=== PATIENT | female | born 1970 | race Caucasian/White ===

== ENCOUNTER 2018-08-04 15:03 | Inpatient (IN) | payer OTHER ==
[2018-08-04] MEDS ORDERED: LORazepam 2 MG/ML SDV VIAL ONE (15:18)
--- NOTE | 2018-08-04 15:51 | PDOC ---
History of Present Illness - General Chief Complaint: Alcohol intoxication Stated Complaint: INTOXICATION Time Seen by Provider: 08/04/18 15:51 - History of Present Illness Initial Comments: 47yo F brought by family member who said she had ingested alcohol and was intoxicated. Patient admits to drinking over five drinks of alcohol. She reports a history of heavy drinking, consuming about two pints of vodka per day. Agitated in the ED. Medicated with Ativan 2mg and Haldol 5mg IM. Patient does not appear to have acute complaints. Denies recent fall, LOC, or neck tenderness. History was difficult to elicit because patient was uncooperative. Past History - Past Medical History Allergies/Adverse Reactions: Allergies Allergy/AdvReac Type Severity Reaction Status Date / Time Penicillins Allergy Intermediate Difficulty Verified 08/29/13 12:04 Breathing mushroom Allergy Severe Difficulty Uncoded 08/29/13 12:04 Breathing Home Medications: Ambulatory Orders Escitalopram Oxalate [Lexapro -] 20 mg PO DAILY #30 tablet 08/30/13 Albuterol Sulfate Inhaler - [Ventolin HFA Inhaler -] 2 inh PO Q4H PRN #1 inh 10/03 Montelukast Na [Singulair -] 10 mg PO HS #30 tablet 09/02/13 Salmeterol/Fluticasone [Advair 500Mcg/50Mcg -] 1 inh IH BID #1 inh 09/02/13 Albuterol 2.5/Ipratropium 0.5 [Duoneb -] 1 neb NEB Q4H PRN #1 vial 06/04/14 Albuterol Sulfate Inhaler - [Ventolin HFA Inhaler -] 1 - 2 inh PO Q4H PRN #1 inhaler 06/04/14 Buspirone HCl [Buspar -] 20 mg PO HS 06/04/14 Quetiapine Fumarate [Seroquel -] 0 mg PO HS 06/04/14 Anemia: No Asthma: Yes (Pt is on MDI for asthma.) Cancer: No Cardiac Disorders: No CVA: No COPD: No CHF: No Dementia: No Diabetes: No GI Disorders: Yes (GERD ON FOMATIDINE) Disorders: No HTN: No Hypercholesterolemia: No Kidney Stones: No Liver Disease: No Psychiatric Problems: Yes (ANXIETY) Seizures: No Thyroid Disease: No - Surgical History Abdominal Surgery: No Appendectomy: No Cardiac Surgery: No Cholecystectomy: No Lung Surgery: No Neurologic Surgery: No Orthopedic Surgery: No - Reproductive History PID: No - Suicide/Smoking/Psychosocial Hx Smoking History: Current every day smoker Have you smoked in the past 12 months: Yes Number of Cigarettes Smoked Daily: 20 Information on smoking cessation initiated: Yes 'Breaking Loose' booklet given: 06/04/14 Hx Alcohol Use: Yes Drug/Substance Use Hx: No Substance Use Type: Alcohol Hx Substance Use Treatment: No Review of Systems - Review of Systems Able to Perform ROS?: No *Physical Exam - Vital Signs Last Vital Signs Temp Pulse Resp BP Pulse Ox 98 F 77 20 129/88 100 08/04/18 15:03 08/04/18 15:03 08/04/18 15:03 08/04/18 15:03 08/04/18 15:03 - Physical Exam Comments: General:Somnolent, oriented x 1 (not to place or time), agitated, yelling intermittently Head: no signs of trauma Eyes: pupils dilated, equal, and reactive ENT: Moist mucus membranes Neck: Normal ROM, no neck tenderness Lungs: Lungs clear, Normal breath sounds Cardio: Regular rhythm, S1 and S2 present Abdomen: Soft, nontender Extremities: Normal range of motion, Distal pulses present SKIN: Warm, Dry, normal turgor; multiple bruises present on upper extremities Neurologic: Cranial nerves II through XII grossly intact. Slurred speech ED Treatment Course - LABORATORY CBC & Chemistry Diagram: 08/05/18 07:30 08/05/18 07:30 Medical Decision Making - Medical Decision Making 47yo F brought by family member who said she had ingested alcohol and was intoxicated. -Patient agitated; given Haldol 5mg IM and Ativan 2mg, calm now -IV fluids given; unsuccessful drawing blood for labs, will hold for now -Care assumed by Dr. Valerio *DC/Admit/Observation/Transfer Diagnosis at time of Disposition: Intoxication, Hypokalemia - Referrals - Patient Instructions - Post Discharge Activity
[2018-08-04] MEDS ORDERED: HALOPERIDOL LACTATE 5 MG/ML ONE (16:03)
[2018-08-04] MEDS ORDERED: HALOPERIDOL LACTATE 5 MG/ML IM ONE (16:06)
[2018-08-04] MEDS ORDERED: SODIUM CHLORIDE 1,000 ML IV STA (16:22)
--- NOTE | 2018-08-04 19:03 | PDOC ---
Attending Attestation - Resident Resident Name: Lavonne Nava - ED Attending Attestation I have performed the following: I have examined & evaluated the patient, The case was reviewed & discussed with the resident, I agree w/resident's findings & plan, Exceptions are as noted - HPI HPI: 08/09/18 08:53 Patient brought in by family member, acutely intoxicated, drinking vodka. Frequently abuses alcohol. Treated in the emergency room on prior occasions for similar. - Physicial Exam PE: 08/09/18 08:54 Physical exam: Acutely intoxicated but awake, somewhat combative, vital signs are stable No sign of trauma to the head or neck, chest or abdomen. No focal neurological deficits. Remainder of exam without significant abnormalities - Medical Decision Making 08/09/18 08:54 Assessment: Acute intoxication. Patient is combative and will not permit further laboratory evaluation Plan: Continued attempts intravenous access, blood work, and administration of fluids, vitamins and thiamine. Signed out to Dr. Valeiro 7 PM pending further evaluation and treatment. Patient clinically and hemodynamically stable without sign of acute intracranial disease.
[2018-08-04 20:11] LABS: INR 1.88 (0.82-1.09); PROTHROMBIN TIME (PATIENT) 20.8 SEC (10.2-13.0)
[2018-08-04 20:17] LABS: BASO % 0.7 % (0-2.0); HEMOGLOBIN 12.3 GM/dl (10.7-15.3); LYMPH % 29.5 % (8-40); MCH 35.9 pg (25.7-33.7); MCHC 33.3 g/dl (32.0-36.0); MEAN CELL VOLUME 107.6 fl (80-96); MEAN PLT VOLUME 9.7 fl (7.5-11.1); MONO % 7.7 % (3.8-10.2); NEUT % 61.1 % (42.8-82.8); RBC 3.43 M/mm3 (3.60-5.2); RDW 13.4 % (11.6-15.6); WHITE BLOOD COUNT 8.4 K/mm3 (4.0-10.8)
[2018-08-04 20:21] LABS: ALBUMIN 3.2 g/dl (3.5-5.0); ALK PHOS 156 U/L (32-92); ANION GAP 13 MMOL/L (8-16); BILIRUBIN,TOTAL 3.4 mg/dl (0.2-1.0); BLOOD UREA NITROGEN 3 mg/dl (7-18); CALCIUM 8.2 mg/dl (8.4-10.2); CHLORIDE 97 mmol/L (98-107); CO2 28 mmol/L (22-28); CREATININE 0.3 mg/dl (0.6-1.3); GLUCOSE,RANDOM 111 mg/dl (74-106); SGOT/AST 274 U/L (10-42); SGPT/ALT 63 U/L (10-40); SODIUM 138 mmol/L (136-145); TOT PROT 6.9 g/dl (6.4-8.3)
[2018-08-04 20:30] LABS: POTASSIUM 2.3 mmol/L (3.5-5.1)
[2018-08-04] MEDS ORDERED: POTASSIUM CHLORIDE TABS 20 MEQ TABLET.ER (FP) PO ONE (20:37)
[2018-08-04] MEDS ORDERED: POTASSIUM CHLORIDE ORAL LIQUID 20 MEQ/15 ML ONE (20:41)
--- NOTE | 2018-08-04 20:45 | PDOC ---
History of Present Illness - General Chief Complaint: Alcohol intoxication Stated Complaint: INTOXICATION Time Seen by Provider: 08/04/18 15:51 History Source: Patient Exam Limitations: No Limitations - History of Present Illness Initial Comments: 08/04/18 20:38 Care of this patient was transferred to me from Dr. Khan at 7 PM. Patient is a 47-year-old female known to this ED and heavy drinker with visits for intoxication. Patient comes in this evening heavily intoxicated patient was very combative when she arrived so received Haldol and Ativan. Patient on my evaluation was sleepy but arousable. They had not been able to obtain labs yet so I silvestre her blood via a small peripheral vein. 20:30 patient remains arousable and comfortable. The patient's labs show an alcohol level of 446 and a potassium of 2.3 Past History - Past Medical History Allergies/Adverse Reactions: Allergies Allergy/AdvReac Type Severity Reaction Status Date / Time Penicillins Allergy Intermediate Difficulty Verified 08/29/13 12:04 Breathing mushroom Allergy Severe Difficulty Uncoded 08/29/13 12:04 Breathing Home Medications: Ambulatory Orders Escitalopram Oxalate [Lexapro -] 20 mg PO DAILY #30 tablet 08/30/13 Albuterol Sulfate Inhaler - [Ventolin HFA Inhaler -] 2 inh PO Q4H PRN #1 inh 10/03 Montelukast Na [Singulair -] 10 mg PO HS #30 tablet 09/02/13 Salmeterol/Fluticasone [Advair 500Mcg/50Mcg -] 1 inh IH BID #1 inh 09/02/13 Albuterol 2.5/Ipratropium 0.5 [Duoneb -] 1 neb NEB Q4H PRN #1 vial 06/04/14 Albuterol Sulfate Inhaler - [Ventolin HFA Inhaler -] 1 - 2 inh PO Q4H PRN #1 inhaler 06/04/14 Buspirone HCl [Buspar -] 20 mg PO HS 06/04/14 Quetiapine Fumarate [Seroquel -] 0 mg PO HS 06/04/14 Anemia: No Asthma: Yes (Pt is on MDI for asthma.) Cancer: No Cardiac Disorders: No CVA: No COPD: No CHF: No Dementia: No Diabetes: No GI Disorders: Yes (GERD ON FOMATIDINE) Disorders: No HTN: No Hypercholesterolemia: No Kidney Stones: No Liver Disease: No Psychiatric Problems: Yes (ANXIETY) Seizures: No Thyroid Disease: No - Surgical History Abdominal Surgery: No Appendectomy: No Cardiac Surgery: No Cholecystectomy: No Lung Surgery: No Neurologic Surgery: No Orthopedic Surgery: No - Reproductive History PID: No - Suicide/Smoking/Psychosocial Hx Smoking History: Current every day smoker Have you smoked in the past 12 months: Yes Number of Cigarettes Smoked Daily: 20 Information on smoking cessation initiated: Yes 'Breaking Loose' booklet given: 06/04/14 Hx Alcohol Use: Yes Drug/Substance Use Hx: No Substance Use Type: Alcohol Hx Substance Use Treatment: No *Physical Exam - Vital Signs Last Vital Signs Temp Pulse Resp BP Pulse Ox 98 F 101 H 18 107/62 92 L 08/04/18 15:03 08/04/18 18:46 08/04/18 18:46 08/04/18 18:46 08/04/18 18:46 ED Treatment Course - LABORATORY CBC & Chemistry Diagram: 08/04/18 19:40 08/04/18 19:40 - ADDITIONAL ORDERS Additional order review: Laboratory Results 08/04/18 08/04/18 08/04/18 19:40 19:40 19:30 PT with INR 20.8 H INR 1.88 H Sodium 138 Potassium 2.3 L* D Chloride 97 L D Carbon Dioxide 28 Anion Gap 13 BUN 3 L Creatinine 0.3 L Creat Clearance w eGFR > 60 Random Glucose 111 H Calcium 8.2 L Total Bilirubin 3.4 H AST 274 H D ALT 63 H D Alkaline Phosphatase 156 H Total Protein 6.9 Albumin 3.2 L Alcohol, Quantitative 446.0 H 08/04/18 19:40 RBC 3.43 L MCV 107.6 H MCHC 33.3 RDW 13.4 MPV 9.7 Neutrophils % 61.1 Lymphocytes % 29.5 Monocytes % 7.7 Eosinophils % 1.0 Basophils % 0.7 - RADIOLOGY Radiology Studies Ordered: Category Date Time Status HEAD CT WITHOUT CONTRAST [CT] Stat CT Scan 08/04/18 19:33 Ordered CHEST X-RAY PORTABLE* [RAD] Stat Radiology 08/04/18 19:33 Ordered - Medications Given in the ED: ED Medications Discontinued Medications Generic Name Dose Route Start Last Admin Trade Name Freq PRN Reason Stop Dose Admin Haloperidol 5 mg 08/04/18 16:06 08/04/18 16:10 Haldol Injection (Fast Acting) - IM 08/04/18 16:07 5 mg ONCE ONE Administration Sodium Chloride 1,000 mls @ 1,000 mls/hr 08/04/18 16:22 08/04/18 17:36 Normal Saline - IV 08/04/18 17:21 1,000 mls/hr ASDIR STA Administration Lorazepam 2 mg 08/04/18 16:08 08/04/18 15:20 Ativan Injection - IM 08/04/18 16:09 2 mg ONCE ONE Administration *DC/Admit/Observation/Transfer Diagnosis at time of Disposition: Intoxication, Hypokalemia - Discharge Dispostion Decision to Admit order: Yes - Referrals - Patient Instructions - Post Discharge Activity
[2018-08-04] MEDS ORDERED: FOLIC ACID INJECTION - 1 MG, THIAMINE HCL 100 MG, MULTIVIT INJECTION ADULT 10 ML in SOD... IVPB ONE (20:56)
[2018-08-04] MEDS ORDERED: MULTIVIT INJ. ADULT COMBO WITH VIT K 1 COMBO 10 ML VIAL IV ONE (21:00)
[2018-08-04] MEDS ORDERED: FOLIC ACID 5 MG/1 ML ONE (21:02)
[2018-08-04 21:29] LABS: PLATELET COUNT 42 K/MM3 (134-434)
[2018-08-04 21:30] LABS: LIPASE 514 U/L (73-393)
[2018-08-04] MEDS ORDERED: HEPARIN NA (PORCINE) 5,000 UNITS/ML 1ML VIAL SQ SCH (22:00)
[2018-08-04] MEDS ORDERED: LACTULOSE 20 GM/30 ML UDC (FOR ORAL USE ONLY) PO PRN (23:14)
[2018-08-04] MEDS ORDERED: SODIUM CHLORIDE 1,000 ML IV SCH (23:15)
[2018-08-05 01:05] VITALS: BMI 21.9
[2018-08-05] MEDS ORDERED: POTASSIUM CHLORIDE TABS 20 MEQ TABLET.ER (FP) PO ONE (04:00)
[2018-08-05] MEDS: guaiFENesin/D-METHORPHAN HB 10 ML UNIT-DOSE CUPS PO PRN (04:05)
[2018-08-05] MEDS ORDERED: traMADol HCL 50 MG TABLET PO ONE ×2 (04:38→10:30)
[2018-08-05] MEDS ORDERED: LORazepam 0.5 MG TABLET ONE (04:53)
[2018-08-05 05:05] LABS: COCAINE, UR NEGATIVE ng/ml (CUTOFF=300); METHADONE, UR NEGATIVE ng/ml (CUTOFF=300); OPIATES, URI NEGATIVE ng/ml (CUTOFF=300); PHENCYCLIDINE,URINE NEGATIVE ng/ml (CUTOFF=25); URINE AMPHETAMINES NEGATIVE ng/ml (CUTOFF=500); URINE BARBITURATES NEGATIVE ng/ml (CUTOFF=200); URINE BENZODIAZEPINES NEGATIVE ng/ml (CUTOFF=200)
[2018-08-05] MEDS ORDERED: LORazepam 1 MG TABLET PO SCH (06:00)
--- NOTE | 2018-08-05 07:46 | HP ---
CHIEF COMPLAINT: " I am going through alcohol withdrawl" PCP: Dr Tanner Theodore HISTORY OF PRESENT ILLNESS: Patient is a 47 y/o female with a past medical History of asthma, anxiety, depression And alcohol abuse. Patient reports drinking 2 pints a day of vodka for the past 10 years. Patient reports she self -discontinued her lexapro, "because it wasn't working." Patient is a poor historian and reports she was brought to emergency department by her family member because she was intoxicated. . ER course was notable for: (1)head ct: no acute pathology (2)ekg:nsr (3)Potassium 2.3 Recent Travel:none PAST MEDICAL HISTORY: see hpi PAST SURGICAL HISTORY:none as per patient Social History: resides at home, with family, patient has a 15 y/o son that resides with another family member Smoking:smokes "many cigarrettes daily" Alcohol:see hpi Drugs: none as per patient Family History: non Contributory Allergies Penicillins Allergy (Intermediate, Verified 08/29/13 12:04) Difficulty Breathing mushroom Allergy (Severe, Uncoded 08/29/13 12:04) Difficulty Breathing HOME MEDICATIONS: Home Medications Medication Instructions Recorded Escitalopram Oxalate [Lexapro -] 20 mg PO DAILY #30 tablet 08/30/13 Albuterol Sulfate Inhaler - 2 inh PO Q4H PRN #1 inh 09/02/13 [Ventolin HFA Inhaler -] Montelukast Na [Singulair -] 10 mg PO HS #30 tablet 09/02/13 Salmeterol/Fluticasone [Advair 1 inh IH BID #1 inh 09/02/13 500Mcg/50Mcg -] Albuterol 2.5/Ipratropium 0.5 1 neb NEB Q4H PRN #1 vial 06/04/14 [Duoneb -] Albuterol Sulfate Inhaler - 1 - 2 inh PO Q4H PRN #1 inhaler 06/04/14 [Ventolin HFA Inhaler -] Buspirone HCl [Buspar -] 20 mg PO HS 06/04/14 Quetiapine Fumarate [Seroquel -] 0 mg PO HS 06/04/14 REVIEW OF SYSTEMS CONSTITUTIONAL: Absent: fever, chills, diaphoresis, generalized weakness, malaise, loss of appetite, weight change HEENT: Absent: rhinorrhea, nasal congestion, throat pain, throat swelling, difficulty swallowing, mouth swelling, ear pain, eye pain, visual changes CARDIOVASCULAR: Absent: chest pain, syncope, palpitations, irregular heart rate, lightheadedness , peripheral edema RESPIRATORY: Absent: cough, shortness of breath, dyspnea with exertion, orthopnea, wheezing, stridor, hemoptysis GASTROINTESTINAL: Absent: abdominal pain, abdominal distension, nausea, vomiting, diarrhea, constipation, melena, hematochezia GENITOURINARY: Absent: dysuria, frequency, urgency, hesitancy, hematuria, flank pain, genital pain MUSCULOSKELETAL: Absent: myalgia, arthralgia, joint swelling, back pain, neck pain SKIN: Absent: rash, itching, pallor HEMATOLOGIC/IMMUNOLOGIC: Absent: easy bleeding, easy bruising, lymphadenopathy, frequent infections ENDOCRINE: Absent: unexplained weight gain, unexplained weight loss, heat intolerance, cold intolerance NEUROLOGIC: present: photosensitivity Absent: headache, focal weakness or paresthesias, dizziness, unsteady gait, seizure, mental status changes, bladder or bowel incontinence PSYCHIATRIC: Present: anxiety, depression, Absent:suicidal or homicidal ideation, hallucinations. PHYSICAL EXAMINATION Vital Signs - 24 hr 08/04/18 08/04/18 08/04/18 15:03 18:46 21:05 Temperature 98 F Pulse Rate 77 Pulse Rate [ 101 H 97 H Left] Respiratory 20 18 18 Rate Blood Pressure 129/88 Blood Pressure 107/62 108/69 [Right Arm] O2 Sat by Pulse 100 92 L 100 Oximetry (%) 08/04/18 08/04/18 08/05/18 23:02 23:45 00:01 Temperature 98.6 F 97.8 F 97.8 F Pulse Rate 91 H 91 H Pulse Rate [ 94 H Left] Respiratory 16 18 Rate Blood Pressure 90/57 L 90/57 L Blood Pressure 101/64 [Right Arm] O2 Sat by Pulse 99 97 97 Oximetry (%) 08/05/18 05:43 Temperature 98.1 F Pulse Rate 91 H Pulse Rate [ Left] Respiratory 18 Rate Blood Pressure 89/59 L Blood Pressure [Right Arm] O2 Sat by Pulse 97 Oximetry (%) GENERAL:Patient is agitated Awake, alert, and fully oriented HEAD: Normal with no signs of trauma. EYES: Pupils equal, round and reactive to light, extraocular movements intact, sclera anicteric, conjunctiva clear. No lid lag. EARS, NOSE, THROAT: Ears normal, nares patent, oropharynx clear without exudates. Moist mucous membranes. NECK: Normal range of motion, supple without lymphadenopathy, JVD, or masses. LUNGS: Breath sounds equal, clear to auscultation bilaterally. No wheezes, and no crackles. No accessory muscle use. HEART: Regular rate and rhythm, normal S1 and S2 without murmur, rub or gallop. ABDOMEN: Soft, nontender, not distended, normoactive bowel sounds, no guarding, no rebound, no masses. No hepatomegaly or splenomegaly. MUSCULOSKELETAL: Normal range of motion at all joints. No bony deformities or tenderness. No CVA tenderness. UPPER EXTREMITIES: 2+ pulses, warm, well-perfused. No cyanosis. No clubbing. No peripheral edema.Bilateral upper extremity tremors LOWER EXTREMITIES: 2+ pulses, warm, well-perfused. No calf tenderness. No peripheral edema. NEUROLOGICAL: Cranial nerves II-XII intact. Normal speech. Normal gait. PSYCHIATRIC: Cooperative. Good eye contact. agitated SKIN: Warm, dry, normal turgor, no rashes or lesions noted, normal capillary refill. Laboratory Results - last 24 hr 08/04/18 08/04/18 08/04/18 19:30 19:30 19:40 WBC 8.4 RBC 3.43 L Hgb 12.3 Hct 37.0 MCV 107.6 H MCH 35.9 H D MCHC 33.3 RDW 13.4 Plt Count 42 L* MPV 9.7 Absolute Neuts (auto) 5.1 Neutrophils % 61.1 Lymphocytes % 29.5 Monocytes % 7.7 Eosinophils % 1.0 Basophils % 0.7 PT with INR INR Sodium Potassium Chloride Carbon Dioxide Anion Gap BUN Creatinine Creat Clearance w eGFR Random Glucose Calcium Total Bilirubin AST ALT Alkaline Phosphatase Ammonia 95.91 H Total Protein Albumin Lipase Serum , Qual Opiates Screen Methadone Screen Barbiturate Screen Phencyclidine Screen Ur Amphetamines Screen MDMA (Ecstasy) Screen Benzodiazepines Screen Cocaine Screen U Marijuana (THC) Screen Alcohol, Quantitative 446.0 H 08/04/18 08/04/18 08/04/18 19:40 19:40 19:40 WBC RBC Hgb Hct MCV MCH MCHC RDW Plt Count MPV Absolute Neuts (auto) Neutrophils % Lymphocytes % Monocytes % Eosinophils % Basophils % PT with INR 20.8 H INR 1.88 H Sodium 138 Potassium 2.3 L* D Chloride 97 L D Carbon Dioxide 28 Anion Gap 13 BUN 3 L Creatinine 0.3 L Creat Clearance w eGFR > 60 Random Glucose 111 H Calcium 8.2 L Total Bilirubin 3.4 H AST 274 H D ALT 63 H D Alkaline Phosphatase 156 H Ammonia Total Protein 6.9 Albumin 3.2 L Lipase 514 H Serum , Qual Negative Opiates Screen Methadone Screen Barbiturate Screen Phencyclidine Screen Ur Amphetamines Screen MDMA (Ecstasy) Screen Benzodiazepines Screen Cocaine Screen U Marijuana (THC) Screen Alcohol, Quantitative 08/05/18 04:25 WBC RBC Hgb Hct MCV MCH MCHC RDW Plt Count MPV Absolute Neuts (auto) Neutrophils % Lymphocytes % Monocytes % Eosinophils % Basophils % PT with INR INR Sodium Potassium Chloride Carbon Dioxide Anion Gap BUN Creatinine Creat Clearance w eGFR Random Glucose Calcium Total Bilirubin AST ALT Alkaline Phosphatase Ammonia Total Protein Albumin Lipase Serum , Qual Opiates Screen Negative Methadone Screen Negative Barbiturate Screen Negative Phencyclidine Screen Negative Ur Amphetamines Screen Negative MDMA (Ecstasy) Screen Negative Benzodiazepines Screen Negative Cocaine Screen Negative U Marijuana (THC) Screen Negative Alcohol, Quantitative ASSESSMENT/PLAN: 1) PSYCH alcohol abuse - pt endorses she drinks 2 pints of vodka daily for the past 10 years, ciwa-ar 18, will start librium protocol - fall risk precautions - appreciate input of substance abuse physician depression anxiety - restart lexapro - appreciate psychiatry input tobacco use - start nicoderm patch 2) GI alcohol induced hepatitis - trend ast/alt, pending GGTP and hepatitis panel - elevated amnonia level continue lactulose - avoid hepatoxic agents - appreciate GI input 3) pulm asthma - no acute exacerbation at this time continue when necessary albuterol f/e/n - regular diet - replete magnesium and potassium ppx - hold chemical ac due to Thrombocytopenia - Pepcid - SCD/Eric - physical therapy evaluation dispo: pt requires inpatient admission Visit type - Emergency Visit Emergency Visit: Yes ED Registration Date: 08/04/18 Care time: The patient presented to the Emergency Department on the above date and was hospitalized for further evaluation of their emergent condition. - New Patient This patient is new to me today: Yes Date on this admission: 08/05/18 - Critical Care Critical Care patient: No
[2018-08-05] MEDS ORDERED: LORazepam 0.5 MG TABLET PO SCH (07:48)
[2018-08-05 08:21] LABS: BASO % 0.8 % (0-2.0); EOS % 2.1 % (0-4.5); HEMATOCRIT 33.7 % (32.4-45.2); HEMOGLOBIN 11.4 GM/dl (10.7-15.3); LYMPH % 26.7 % (8-40); MCH 36.3 pg (25.7-33.7); MCHC 33.7 g/dl (32.0-36.0); MEAN CELL VOLUME 107.7 fl (80-96); MEAN PLT VOLUME 9.2 fl (7.5-11.1); MONO % 7.4 % (3.8-10.2); PLATELET COUNT 39 K/MM3 (134-434); RBC 3.13 M/mm3 (3.60-5.2); RDW 13.4 % (11.6-15.6)
[2018-08-05 08:45] LABS: ANION GAP 8 MMOL/L (8-16); CALCIUM 7.3 mg/dl (8.4-10.2); CHLORIDE 105 mmol/L (98-107); CO2 27 mmol/L (22-28); CREATININE 0.3 mg/dl (0.6-1.3); GLUCOSE,RANDOM 88 mg/dl (74-106); MAGNESIUM 1.3 mg/dL (1.8-2.4); POTASSIUM 3.2 mmol/L (3.5-5.1); SODIUM 140 mmol/L (136-145)
[2018-08-05 08:55] LABS: ALBUMIN 2.9 g/dl (3.5-5.0); BILIRUBIN,DIRECT 1.7 mg/dL (0.0-0.3); BILIRUBIN,TOTAL 3.3 mg/dl (0.2-1.0); TOT PROT 6.3 g/dl (6.4-8.3)
[2018-08-05 08:56] LABS: BLOOD UREA NITROGEN < 5 mg/dl (7-18)
[2018-08-05] MEDS ORDERED: MAGNESIUM SULFATE 2 GM in SODIUM CHLORIDE 100 ML IVPB ONE (08:59)
[2018-08-05 09:07] LABS: WHITE BLOOD COUNT 8.1 K/mm3 (4.0-10.8)
[2018-08-05] MEDS ORDERED: MAGNESIUM SULFATE IN WATER 2 GM/50 ML IVPB IVPB ONE (09:30)
[2018-08-05] MEDS ORDERED: PT OWN MED DRAWER 7, Y5N ONE ×2 (09:55→18:25)
[2018-08-05] MEDS ORDERED: chlordiazePOXIDE HCL 25 MG CAPSULE PO ONE (10:07)
[2018-08-05] MEDS ORDERED: chlordiazePOXIDE HCL 25 MG CAPSULE ONE (10:19)
[2018-08-05] MEDS: THIAMINE HCL 100 MG TABLET (FP) PO SCH (10:24)
[2018-08-05] MEDS: FOLIC ACID 1 MG TABLET (FP) PO SCH (10:24)
[2018-08-05] MEDS: POTASSIUM CHLORIDE TABS 20 MEQ TABLET.ER (FP) PO SCH (10:25)
[2018-08-05] MEDS: SODIUM CHLORIDE 0.9%/KCL 20 MEQ/1,000 ML INFUS.BAG IV SCH (10:25)
[2018-08-05] MEDS: ESCITALOPRAM OXALATE 20 MG TABLET (FP) PO SCH (10:38)
--- NOTE | 2018-08-05 10:41 | EKG ---
Test Reason : Blood Pressure : / mmHG Vent. Rate : 095 BPM Atrial Rate : 095 BPM P-R Int : 136 ms QRS Dur : 084 ms QT Int : 398 ms P-R-T Axes : 029 028 016 degrees QTc Int : 500 ms NORMAL SINUS RHYTHM NORMAL ECG WHEN COMPARED WITH ECG OF 23-JUL-1998 11:49, VENT. RATE HAS INCREASED BY 37 BPM Confirmed by GURJIT MONTEMAYOR MD ([id number]) on 08/05/2018 10:41:39 AM Referred By: TERI DURBIN Confirmed By:GURJIT MONTEMAYOR MD
--- NOTE | 2018-08-05 11:24 | CONSULT ---
"Consult Detox [facility] Reason for Current Admission/Consult: alcohol use - History History of Present Illness: 47yo F brought after ingestion of large quantities of alcohol and was intoxicated. Patient admits to drinking over five drinks of alcohol--two pints of vodka per day. Pt was agitated in the ED. pt states would like to stop drinking- has been drinking too much Confidential Drug Utilization Report Search Terms: georgina ruffin, 1970 Search Date: 08/05/2018 11:23:52 AM The Drug Utilization Report below displays all of the controlled substance prescriptions, if any, that your patient has filled in the last twelve months. The information displayed on this report is compiled from pharmacy submissions to the Department, and accurately reflects the information as submitted by the pharmacies. This report was requested by: Zan Diaz | Reference #: [id number] Others' Prescriptions Patient Name: Georgina Sims Date: 1970 Address: [address] [place] [address] Sex: Female Rx Written Rx Dispensed Drug Quantity Days Supply Prescriber Name 05/21/2018 06/05/2018 hydrocodone-acetaminophen 5-325 mg tablet 12 2 John Alejandra DDJena 10/13/2017 10/13/2017 oxycodone-acetaminophen 5-325 mg tablet 10 3 Fran Aguilera - Alcohol/Substance Use Hx Alcohol Use: Yes - Past Medical History ...LMP: 11/02/10 ...: No CIWA Score - CIWA Score Nausea/Vomitin-Mild Nausea/No Vomiting Muscle Tremors: 4-Moderate,w/Arms Extend Anxiety: 1-Mildly Anxious Agitation: 1-Slight > Activity Paroxysmal Sweats: No Perspiration Orientation: 0-Oriented Tacttile Disturbances: 0-None Auditory Disturbances: 0-None Visual Disturbances: 0-None Headache: 0-None Present CIWA-Ar Total Score: 7 Assessment Plan - Diagnosis (1) Alcohol use disorder Status: Acute (2) Alcohol use with intoxication Status: Chronic - Plan Plan: Pt admitted with acute alcohol intoxication. Pt is currently getting librium detox protocol- pt now with tremors-will increase the librium prn to 50mg q 4 hours and one dose of Ativan 1mg IV push- d/w nursing staff to call if pt needs additional dosing. Pt would like to go to alcohol rehab at [facility] [place] in [place] after detox is completed. - Medication Detox Regimen/Protocol: Lea"
[2018-08-05] MEDS: MULTIVITAMINS (DAILY MVI) TABLET (FP) PO SCH (11:33)
[2018-08-05] MEDS: NICOTINE 14 MG/24 HOURS TOPICAL PATCH TD SCH (11:33)
[2018-08-05] MEDS: chlordiazePOXIDE HCL 25 MG CAPSULE PO SCH ×2 (11:33→16:10)
[2018-08-05 12:31] LABS: PLATELET ESTIMATE DECREASED
[2018-08-05] MEDS: chlordiazePOXIDE HCL 25 MG CAPSULE PO PRN ×3 (13:36→21:06)
[2018-08-05] MEDS: LACTULOSE 20 GM/30 ML UDC (FOR ORAL USE ONLY) PO SCH ×2 (14:07→19:55)
[2018-08-05] MEDS ORDERED: LORazepam 2 MG/ML SDV VIAL ONE ×2 (18:44→21:19)
[2018-08-05] MEDS ORDERED: LORazepam 2 MG/ML SDV VIAL IVPUSH ONE (18:44)
[2018-08-05] MEDS: LORazepam 2 MG/ML SDV VIAL IVPUSH ONE (21:33)
[2018-08-06] MEDS: LORazepam 2 MG/ML SDV VIAL IVPUSH PRN ×2 (01:31→21:58)
[2018-08-06] MEDS: LORazepam 2 MG/ML SDV VIAL IVPUSH SCH ×4 (01:54→15:43)
[2018-08-06] MEDS: LACTULOSE 20 GM/30 ML UDC (FOR ORAL USE ONLY) PO SCH ×3 (03:11→19:26)
--- NOTE | 2018-08-06 07:52 | PN ---
Physical Exam: SUBJECTIVE: Patient seen and examined, resting in bed, reports feeling less Tremulous, reports decreased Appetite patient is tolerating small sips of water OBJECTIVE:Patient is a 47 y/o female with a past medical History of asthma, anxiety, depression And alcohol abuse. Patient reports drinking 2 pints a day of vodka for the past 10 years. patient was admitted from the emergency department for alcohol Withdrawal Vital Signs Period Temp Pulse Resp BP Sys/Bautista Pulse Ox Last 24 Hr 98.0 F-99.6 F 84-98 16-19 100-117/55-63 92-95 GENERAL:Patient is Awake, alert, and fully oriented HEAD: Normal with no signs of trauma. EYES: Pupils equal, round and reactive to light, extraocular movements intact, sclera anicteric, conjunctiva clear. No lid lag. EARS, NOSE, THROAT: Ears normal, nares patent, oropharynx clear without exudates. Moist mucous membranes. NECK: Normal range of motion, supple without lymphadenopathy, JVD, or masses. LUNGS: Breath sounds equal, clear to auscultation bilaterally. No wheezes, and no crackles. No accessory muscle use. HEART: Regular rate and rhythm, normal S1 and S2 without murmur, rub or gallop. ABDOMEN: Soft, nontender, not distended, normoactive bowel sounds, no guarding, no rebound, no masses. No hepatomegaly or splenomegaly. MUSCULOSKELETAL: Normal range of motion at all joints. No bony deformities or tenderness. No CVA tenderness. UPPER EXTREMITIES: 2+ pulses, warm, well-perfused. No cyanosis. No clubbing. No peripheral edema. Fine Bilateral upper extremity tremors LOWER EXTREMITIES: 2+ pulses, warm, well-perfused. No calf tenderness. No peripheral edema. NEUROLOGICAL: Cranial nerves II-XII intact. Normal speech. Normal gait. PSYCHIATRIC: Cooperative. Good eye contact. SKIN: Warm, dry, normal turgor, echymosis noted to bilateral upper extremities. no rashes or lesions noted, normal capillary refill. Laboratory Results - last 24 hr CBC WBC 7.4 K/mm3 (4.0-10.8) 08/06/18 06:30 RBC 3.01 M/mm3 (3.60-5.2) L 08/06/18 06:30 Hgb 11.2 GM/dl (10.7-15.3) 08/06/18 06:30 Hct 32.5 % (32.4-45.2) 08/06/18 06:30 MCV 108.1 fl (80-96) H 08/06/18 06:30 MCH 37.1 pg (25.7-33.7) H 08/06/18 06:30 MCHC 34.3 g/dl (32.0-36.0) 08/06/18 06:30 RDW 13.6 % (11.6-15.6) 08/06/18 06:30 Plt Count 35 K/MM3 (134-434) L* 08/06/18 06:30 MPV 9.8 fl (7.5-11.1) 08/06/18 06:30 Absolute Neuts (auto) 4.4 K/mm3 08/06/18 06:30 Neutrophils % 61.0 % (42.8-82.8) 08/06/18 06:30 Lymphocytes % 28.1 % (8-40) 08/06/18 06:30 Monocytes % 7.3 % (3.8-10.2) 08/06/18 06:30 Eosinophils % 2.8 % (0-4.5) 08/06/18 06:30 Basophils % 0.8 % (0-2.0) 08/06/18 06:30 Platelet Estimate Decreased 08/05/18 07:30 Platelet Comment No clumping noted 08/05/18 07:30 CMP Sodium 134 mmol/L (136-145) L 08/06/18 06:30 Potassium 3.5 mmol/L (3.5-5.1) 08/06/18 06:30 Chloride 104 mmol/L (98-107) 08/06/18 06:30 Carbon Dioxide 24 mmol/L (22-28) 08/06/18 06:30 Anion Gap 6 MMOL/L (8-16) L 08/06/18 06:30 BUN 3 mg/dl (7-18) L 08/06/18 06:30 Creatinine 0.2 mg/dl (0.6-1.3) L 08/06/18 06:30 Creat Clearance w eGFR > 60 (>60) 08/06/18 06:30 Random Glucose 89 mg/dl (74-106) 08/06/18 06:30 Calcium 7.6 mg/dl (8.4-10.2) L 08/06/18 06:30 Phosphorus 1.4 mg/dl (2.5-4.6) L D 08/06/18 06:30 Magnesium 1.4 mg/dL (1.8-2.4) L 08/06/18 06:30 Total Bilirubin 6.4 mg/dl (0.2-1.0) H D 08/06/18 06:30 Direct Bilirubin 1.7 mg/dL (0.0-0.3) H 08/05/18 08:21 GGT 1020 U/L (3-64) H 08/06/18 06:30 AST 223 U/L (10-42) H D 08/06/18 06:30 ALT 50 U/L (10-40) H 08/06/18 06:30 Alkaline Phosphatase 135 U/L (32-92) H 08/06/18 06:30 Ammonia 128.70 umol/L (11-32) H 08/06/18 06:30 Total Protein 5.9 g/dl (6.4-8.3) L 08/06/18 06:30 Albumin 2.7 g/dl (3.5-5.0) L 08/06/18 06:30 Lipase 514 U/L (73-393) H 08/04/18 19:40 Serum , Qual Negative 08/04/18 19:40 Active Medications Generic Name Dose Route Start Last Admin Trade Name Freq PRN Reason Stop Dose Admin Albuterol Sulfate 2 puff 08/05/18 04:38 Ventolin Hfa Inhaler - IH Q4H PRN SHORT OF BREATH/WHEEZING Chlordiazepoxide HCl 50 mg 08/05/18 18:43 08/05/18 21:06 Librium - PO 08/08/18 10:06 50 mg Q4H PRN Administration WITHDRAWAL(CONT SUBST) Escitalopram Oxalate 20 mg 08/05/18 10:15 08/05/18 10:38 Lexapro - PO 20 mg DAILY MAXINE Administration Folic Acid 1 mg 08/05/18 10:00 08/05/18 10:24 Folic Acid - PO 1 mg DAILY MAXINE Administration Guaifenesin 10 ml 08/05/18 03:56 08/05/18 04:05 Robitussin Dm - PO 10 ml Q6H PRN Administration COUGH Potassium Chloride/Sodium Chloride 20 meq in 1,000 mls @ 100 mls/hr 08/05/18 09:45 08/05/18 10:25 Ns+20 Meq Kcl - IV 100 mls/hr ASDIR MAXINE Administration Lactulose 20 gm 08/05/18 12:00 08/06/18 03:11 Cephulac (Oral Use) PO 20 gm Q8H MAXINE Administration Lorazepam 1 mg 08/05/18 21:21 08/06/18 01:31 Ativan Injection - IVPUSH 1 mg Q6H PRN Administration WITHDRAWAL(CONT SUBST) Lorazepam 2 mg 08/05/18 21:30 08/06/18 03:44 Ativan Injection - IVPUSH 08/06/18 15:31 2 mg Q6H MAXINE Administration Multivitamins/Minerals/Vitamin C 1 tab 08/05/18 10:45 08/05/18 11:33 Tab-A-Vit - PO 1 tab DAILY MAXINE Administration Nicotine 14 mg 08/05/18 10:30 08/05/18 11:33 Nicoderm Patch - TD 14 mg DAILY MAXINE Administration Ondansetron HCl 4 mg 08/06/18 07:51 Zofran Injection IVPUSH Q8H PRN NAUSEA Potassium Chloride 40 meq 08/05/18 10:00 08/05/18 10:25 K-Dur - PO 40 meq DAILY MAXINE Administration Thiamine HCl 100 mg 08/05/18 10:00 08/05/18 10:24 Vitamin B1 - PO 100 mg DAILY MAXINE Administration IMAGING head ct: no acute pathology chest xray: no infilitrate no effusion noted ASSESSMENT/PLAN: 1) PSYCH alcohol abuse - pt endorses she drinks 2 pints of vodka daily for the past 10 years, continue standing doses of ativan, patient was not tolerating librium secondary to vomiting. - lengthy discussion with patient in regards to alcholol detox, patient is requesting alcohol detox - Dr Diaz, substance abuse physician consulted and following risk precautions depression anxiety - patient denies any suicidal or homicidal ideation will continue lexapro - appreciate psychiatry input tobacco use - continue nicoderm patch 2) GI alcohol induced hepatitis - ast/alt trending downward, pending hepatitis panel - elevated amnonia level continue lactulose - avoid hepatoxic agents - appreciate GI input 3) pulm asthma - no acute exacerbation at this time continue when necessary albuterol f/e/n - regular diet - replete magnesium, potassium phos gtt ordered ppx - hold chemical ac due to Thrombocytopenia - Pepcid - SCD/Eric - physical therapy evaluation dispo: pt requires inpatient admission Visit type - Emergency Visit Emergency Visit: Yes ED Registration Date: 08/04/18 Care time: The patient presented to the Emergency Department on the above date and was hospitalized for further evaluation of their emergent condition. - New Patient This patient is new to me today: No - Critical Care Critical Care patient: No - Discharge Referral Referred to [facility] Med P.C.: No
[2018-08-06 07:53] LABS: BASO % 0.8 % (0-2.0); EOS % 2.8 % (0-4.5); HEMATOCRIT 32.5 % (32.4-45.2); HEMOGLOBIN 11.2 GM/dl (10.7-15.3); LYMPH % 28.1 % (8-40); MCH 37.1 pg (25.7-33.7); MCHC 34.3 g/dl (32.0-36.0); MEAN CELL VOLUME 108.1 fl (80-96); MEAN PLT VOLUME 9.8 fl (7.5-11.1); MONO % 7.3 % (3.8-10.2); RBC 3.01 M/mm3 (3.60-5.2); RDW 13.6 % (11.6-15.6); WHITE BLOOD COUNT 7.4 K/mm3 (4.0-10.8)
[2018-08-06 08:09] LABS: ALBUMIN 2.7 g/dl (3.5-5.0); ALK PHOS 135 U/L (32-92); ANION GAP 6 MMOL/L (8-16); BILIRUBIN,TOTAL 6.4 mg/dl (0.2-1.0); BLOOD UREA NITROGEN 3 mg/dl (7-18); CALCIUM 7.6 mg/dl (8.4-10.2); CHLORIDE 104 mmol/L (98-107); CO2 24 mmol/L (22-28); CREATININE 0.2 mg/dl (0.6-1.3); GLUCOSE,RANDOM 89 mg/dl (74-106); MAGNESIUM 1.4 mg/dL (1.8-2.4); PHOSPHOROUS 1.4 mg/dl (2.5-4.6); PLATELET COUNT 35 K/MM3 (134-434); POTASSIUM 3.5 mmol/L (3.5-5.1); SGOT/AST 223 U/L (10-42); SGPT/ALT 50 U/L (10-40); SODIUM 134 mmol/L (136-145); TOT PROT 5.9 g/dl (6.4-8.3)
[2018-08-06] MEDS: ONDANSETRON 4 MG/2 ML VIAL IVPUSH PRN ×2 (08:20→20:05)
[2018-08-06] MEDS: SODIUM CHLORIDE 0.9%/KCL 20 MEQ/1,000 ML INFUS.BAG IV SCH (10:00)
[2018-08-06] MEDS: POTASSIUM CHLORIDE TABS 20 MEQ TABLET.ER (FP) PO SCH (10:56)
[2018-08-06] MEDS: FOLIC ACID 1 MG TABLET (FP) PO SCH (10:56)
[2018-08-06] MEDS: NICOTINE 14 MG/24 HOURS TOPICAL PATCH TD SCH (10:57)
[2018-08-06] MEDS: MULTIVITAMINS (DAILY MVI) TABLET (FP) PO SCH (10:57)
[2018-08-06] MEDS: THIAMINE HCL 100 MG TABLET (FP) PO SCH (10:57)
[2018-08-06] MEDS: ESCITALOPRAM OXALATE 20 MG TABLET (FP) PO SCH (10:57)
[2018-08-06] MEDS: chlordiazePOXIDE HCL 25 MG CAPSULE PO PRN ×3 (10:57→20:05)
[2018-08-06] MEDS ORDERED: chlordiazePOXIDE HCL 25 MG CAPSULE PO SCH (11:00)
[2018-08-06] MEDS ORDERED: MAGNESIUM SULFATE IN WATER 2 GM/50 ML IVPB IVPB ONE (11:30)
[2018-08-06] MEDS ORDERED: POTASSIUM PHOSPHATE 21 MM in SODIUM CHLORIDE 250 ML IVPB ONE (12:30)
[2018-08-06] MEDS ORDERED: ONDANSETRON 4 MG/2 ML VIAL IVPUSH PRN (20:03)
[2018-08-06] MEDS: chlordiazePOXIDE HCL 25 MG CAPSULE PO SCH (23:00)
[2018-08-07 00:08] LABS: HBSAG SCREEN Negative (Negative); HEP A AB, IGM Negative (Negative); HEP B CORE AB, TOT Negative (Negative)
[2018-08-07] MEDS: guaiFENesin/D-METHORPHAN HB 10 ML UNIT-DOSE CUPS PO PRN (01:51)
[2018-08-07] MEDS: LORazepam 2 MG/ML SDV VIAL IVPUSH PRN ×3 (03:15→14:30)
[2018-08-07] MEDS: LACTULOSE 20 GM/30 ML UDC (FOR ORAL USE ONLY) PO SCH ×3 (03:26→21:39)
[2018-08-07] MEDS: chlordiazePOXIDE HCL 25 MG CAPSULE PO SCH ×4 (04:09→23:00)
[2018-08-07] MEDS ORDERED: LORazepam 0.5 MG TABLET PO SCH (06:00)
--- NOTE | 2018-08-07 07:43 | PN ---
Physical Exam: SUBJECTIVE: Patient seen and examined, patient reports feeling anxious, wants to walk outside to smoke OBJECTIVE::Patient is a 47 y/o female with a past medical History of asthma, anxiety, depression And alcohol abuse. Patient reports drinking 2 pints a day of vodka for the past 10 years. patient was admitted from the emergency department for alcohol Withdrawal Vital Signs Period Temp Pulse Resp BP Sys/Bautista Pulse Ox Last 24 Hr 98.0 F-99.1 F 74-98 18-18 108-121/59-70 96-100 GENERAL:Patient is Awake, alert, and fully oriented HEAD: Normal with no signs of trauma. EYES: Pupils equal, round and reactive to light, extraocular movements intact, sclera anicteric, conjunctiva clear. No lid lag. EARS, NOSE, THROAT: Ears normal, nares patent, oropharynx clear without exudates. Moist mucous membranes. NECK: Normal range of motion, supple without lymphadenopathy, JVD, or masses. LUNGS: Breath sounds equal, clear to auscultation bilaterally. No wheezes, and no crackles. No accessory muscle use. HEART: Regular rate and rhythm, normal S1 and S2 without murmur, rub or gallop. ABDOMEN: Soft, nontender, not distended, normoactive bowel sounds, no guarding, no rebound, no masses. No hepatomegaly or splenomegaly. MUSCULOSKELETAL: Normal range of motion at all joints. No bony deformities or tenderness. No CVA tenderness. UPPER EXTREMITIES: 2+ pulses, warm, well-perfused. No cyanosis. No clubbing. No peripheral edema. Fine Bilateral upper extremity tremors LOWER EXTREMITIES: 2+ pulses, warm, well-perfused. No calf tenderness. No peripheral edema. NEUROLOGICAL: Cranial nerves II-XII intact. Normal speech. Normal gait. PSYCHIATRIC: Cooperative. Good eye contact. SKIN: Warm, dry, normal turgor, echymosis noted to bilateral upper extremities. no rashes or lesions noted, normal capillary refill. Laboratory Results - last 24 hr 08/05/18 08/06/18 08/06/18 08:21 06:30 06:30 WBC 7.4 RBC 3.01 L Hgb 11.2 Hct 32.5 MCV 108.1 H MCH 37.1 H MCHC 34.3 RDW 13.6 Plt Count 35 L* MPV 9.8 Absolute Neuts (auto) 4.4 Neutrophils % 61.0 Lymphocytes % 28.1 Monocytes % 7.3 Eosinophils % 2.8 Basophils % 0.8 Sodium 134 L Potassium 3.5 Chloride 104 Carbon Dioxide 24 Anion Gap 6 L BUN 3 L Creatinine 0.2 L Creat Clearance w eGFR > 60 Random Glucose 89 Calcium 7.6 L Phosphorus 1.4 L D Magnesium 1.4 L Total Bilirubin 6.4 H D GGT AST 223 H D ALT 50 H Alkaline Phosphatase 135 H Ammonia Total Protein 5.9 L Albumin 2.7 L Hep A IgM Ab Confirm Negative Hepatitis A Ab Total Positive H Hep Bs Antigen Negative Hep Bs Antibody Non reactive Hep B Core Total Ab Negative Hep C Ab Diagnostic <0.1 Liver Fibrosis Interp 08/06/18 08/06/18 06:30 06:30 WBC RBC Hgb Hct MCV MCH MCHC RDW Plt Count MPV Absolute Neuts (auto) Neutrophils % Lymphocytes % Monocytes % Eosinophils % Basophils % Sodium Potassium Chloride Carbon Dioxide Anion Gap BUN Creatinine Creat Clearance w eGFR Random Glucose Calcium Phosphorus Magnesium Total Bilirubin GGT 1020 H AST ALT Alkaline Phosphatase Ammonia 128.70 H Total Protein Albumin Hep A IgM Ab Confirm Hepatitis A Ab Total Hep Bs Antigen Hep Bs Antibody Hep B Core Total Ab Hep C Ab Diagnostic Liver Fibrosis Interp Active Medications Generic Name Dose Route Start Last Admin Trade Name Freq PRN Reason Stop Dose Admin Albuterol Sulfate 2 puff 08/05/18 04:38 Ventolin Hfa Inhaler - IH Q4H PRN SHORT OF BREATH/WHEEZING Chlordiazepoxide HCl 50 mg 08/05/18 18:43 08/06/18 20:05 Librium - PO 08/08/18 10:06 50 mg Q4H PRN Administration WITHDRAWAL(CONT SUBST) Chlordiazepoxide HCl 50 mg 08/06/18 23:00 08/07/18 04:09 Librium - PO 08/07/18 17:01 50 mg [id number] MAXINE Administration Chlordiazepoxide HCl 25 mg 08/07/18 23:00 Librium - PO 08/08/18 17:01 [id number] MAXINE Chlordiazepoxide HCl 15 mg 08/08/18 23:00 Librium - PO 08/09/18 17:01 [id number] MAXINE Chlordiazepoxide HCl 10 mg 08/09/18 23:00 Librium - PO 08/10/18 17:01 [id number] MAXINE Escitalopram Oxalate 20 mg 08/05/18 10:15 08/06/18 10:57 Lexapro - PO 20 mg DAILY MAXINE Administration Folic Acid 1 mg 08/05/18 10:00 08/06/18 10:56 Folic Acid - PO 1 mg DAILY MAXINE Administration Guaifenesin 10 ml 08/05/18 03:56 08/07/18 01:51 Robitussin Dm - PO 10 ml Q6H PRN Administration COUGH Potassium Chloride/Sodium Chloride 20 meq in 1,000 mls @ 100 mls/hr 08/05/18 09:45 08/06/18 10:00 Ns+20 Meq Kcl - IV 100 mls/hr ASDIR MAXINE Administration Lactulose 20 gm 08/05/18 12:00 08/07/18 03:26 Cephulac (Oral Use) PO 20 gm Q8H MAXINE Administration Lorazepam 1 mg 08/05/18 21:21 08/07/18 03:15 Ativan Injection - IVPUSH 1 mg Q6H PRN Administration WITHDRAWAL(CONT SUBST) Multivitamins/Minerals/Vitamin C 1 tab 08/05/18 10:45 08/06/18 10:57 Tab-A-Vit - PO 1 tab DAILY MAXINE Administration Nicotine 14 mg 08/05/18 10:30 08/06/18 10:57 Nicoderm Patch - TD 14 mg DAILY MAXINE Administration Ondansetron HCl 4 mg 08/06/18 07:51 08/06/18 20:05 Zofran Injection IVPUSH 4 mg Q8H PRN Administration NAUSEA Ondansetron HCl 4 mg 08/06/18 20:03 Zofran Injection IVPUSH Q4H PRN NAUSEA AND/OR VOMITING Potassium Chloride 40 meq 08/05/18 10:00 08/06/18 10:56 K-Dur - PO 40 meq DAILY MAXINE Administration Thiamine HCl 100 mg 08/05/18 10:00 08/06/18 10:57 Vitamin B1 - PO 100 mg DAILY MAXINE Administration IMAGING head ct: no acute pathology chest xray: no infilitrate no effusion noted ASSESSMENT/PLAN: 1) PSYCH alcohol abuse - pt endorses she drinks 2 pints of vodka daily for the past 10 years, continue prn ativan, continue librium protocol - lengthy discussion with patient in regards to alcohol detox, patient is requesting alcohol detox - Dr Diaz, substance abuse physician consulted and following - fall risk precautions depression anxiety - patient denies any suicidal or homicidal ideation will continue lexapro - appreciate psychiatry input tobacco use - continue nicoderm patch 2) GI alcohol induced hepatitis - ast/alt trending downward, pending hepatitis panel - elevated amnonia level continue lactulose - avoid hepatoxic agents - appreciate GI input 3) pulm asthma - no acute exacerbation at this time continue when necessary albuterol f/e/n - regular diet - replete magnesium, potassium phos gtt ordered ppx - hold chemical ac due to Thrombocytopenia - Pepcid - SCD/Eric - physical therapy evaluation dispo: pt requires inpatient admission Visit type - Emergency Visit Emergency Visit: Yes ED Registration Date: 08/04/18 Care time: The patient presented to the Emergency Department on the above date and was hospitalized for further evaluation of their emergent condition. - New Patient This patient is new to me today: No - Critical Care Critical Care patient: No - Discharge Referral Referred to [facility] Med P.C.: No
[2018-08-07] MEDS: SODIUM CHLORIDE 0.9%/KCL 20 MEQ/1,000 ML INFUS.BAG IV SCH (09:30)
[2018-08-07] MEDS: POTASSIUM CHLORIDE TABS 20 MEQ TABLET.ER (FP) PO SCH (09:39)
[2018-08-07] MEDS: MULTIVITAMINS (DAILY MVI) TABLET (FP) PO SCH (09:39)
[2018-08-07] MEDS: ESCITALOPRAM OXALATE 20 MG TABLET (FP) PO SCH (09:40)
[2018-08-07] MEDS: THIAMINE HCL 100 MG TABLET (FP) PO SCH (09:40)
[2018-08-07] MEDS: FOLIC ACID 1 MG TABLET (FP) PO SCH (09:40)
[2018-08-07] MEDS: NICOTINE 14 MG/24 HOURS TOPICAL PATCH TD SCH (09:41)
[2018-08-07] MEDS ORDERED: chlordiazePOXIDE 5 MG CAPSULE PO SCH (11:00)
[2018-08-07 13:45] LABS: MCH 36.6 pg (25.7-33.7)
[2018-08-07 13:49] LABS: RDW 13.8 % (11.6-15.6)
[2018-08-07 13:57] LABS: HEMATOCRIT 36.3 % (32.4-45.2); HEMOGLOBIN 12.2 GM/dl (10.7-15.3); MCHC 33.7 g/dl (32.0-36.0); MEAN CELL VOLUME 108.7 fl (80-96); MEAN PLT VOLUME 9.6 fl (7.5-11.1); RBC 3.34 M/mm3 (3.60-5.2)
[2018-08-07 13:58] LABS: ADD RBC MORPHOLOGY YES
[2018-08-07 14:01] LABS: PLATELET COUNT 44 K/MM3 (134-434)
[2018-08-07 14:08] LABS: ALK PHOS 139 U/L (32-92); ANION GAP 4 MMOL/L (8-16); BILIRUBIN,TOTAL 10.6 mg/dl (0.2-1.0); BLOOD UREA NITROGEN 5 mg/dl (7-18); CALCIUM 8.3 mg/dl (8.4-10.2); CHLORIDE 106 mmol/L (98-107); CO2 20 mmol/L (22-28); CREATININE 0.3 mg/dl (0.6-1.3); GLUCOSE,RANDOM 99 mg/dl (74-106); MAGNESIUM 1.6 mg/dL (1.8-2.4); SGOT/AST 181 U/L (10-42); SGPT/ALT 46 U/L (10-40); SODIUM 130 mmol/L (136-145); TOT PROT 6.5 g/dl (6.4-8.3)
[2018-08-07 14:39] LABS: POTASSIUM 4.6 mmol/L (3.5-5.1)
[2018-08-07] MEDS ORDERED: MAGNESIUM SULFATE 2 GM in SODIUM CHLORIDE 100 ML IVPB ONE (14:46)
[2018-08-07] MEDS ORDERED: MAGNESIUM SULFATE IN WATER 2 GM/50 ML IVPB IVPB ONE (15:00)
--- NOTE | 2018-08-07 15:23 | CON.PSY ---
Psychiatry Consult Chief Complaint: 47 year old with a life long history of Alcohal Aduse see for psych evaluation. Patient has been drinking excwssivel;y and also has some medical problems. Symptoms: reports: Irritability - Previous Psychiatric Treatment Outpatient: None Inpatient: None - Previous Substance Abuse Treatment Outpatient: None Inpatient: None - Reason for Previous Treatment Reason for Previous Treatment: Alcohol Abuse - Current Medications Current Medications: Active Medications Albuterol Sulfate (Ventolin Hfa Inhaler -) 2 puff IH Q4H PRN PRN Reason: SHORT OF BREATH/WHEEZING Chlordiazepoxide HCl (Librium -) 50 mg PO Q4H PRN PRN Reason: WITHDRAWAL(CONT SUBST) Stop: 08/08/18 10:06 Last Admin: 08/06/18 20:05 Dose: 50 mg Chlordiazepoxide HCl (Librium -) 50 mg PO [id number] [facility] Stop: 08/07/18 17:01 Last Admin: 08/07/18 11:00 Dose: 50 mg Chlordiazepoxide HCl (Librium -) 25 mg PO [id number] MAXINE Stop: 08/08/18 17:01 Chlordiazepoxide HCl (Librium -) 15 mg PO [id number] MAXINE Stop: 08/09/18 17:01 Chlordiazepoxide HCl (Librium -) 10 mg PO [id number] MAXINE Stop: 08/10/18 17:01 Escitalopram Oxalate (Lexapro -) 20 mg PO DAILY [facility] Last Admin: 08/07/18 09:40 Dose: 20 mg Folic Acid (Folic Acid -) 1 mg PO DAILY [facility] Last Admin: 08/07/18 09:40 Dose: 1 mg Guaifenesin (Robitussin Dm -) 10 ml PO Q6H PRN PRN Reason: COUGH Last Admin: 08/07/18 01:51 Dose: 10 ml Potassium Chloride/Sodium Chloride (Ns+20 Meq Kcl -) 20 meq in 1,000 mls @ 100 mls/hr IV ASDIR MAXINE Last Admin: 08/07/18 09:30 Dose: 100 mls/hr Sodium Phosphate 21 mm/ Sodium (Chloride) 257 mls @ 62.5 mls/hr IVPB ONCE ONE Stop: 08/07/18 20:06 Magnesium Sulfate (Magnesium Sulf 2 G/50 Ml Bag) 2 gm in 50 mls @ 50 mls/hr IVPB ONCE ONE Stop: 08/07/18 15:59 Lactulose (Cephulac (Oral Use)) 20 gm PO Q8H [facility] Last Admin: 08/07/18 12:22 Dose: 20 gm Lorazepam (Ativan Injection -) 1 mg IVPUSH Q6H PRN PRN Reason: WITHDRAWAL(CONT SUBST) Last Admin: 08/07/18 09:35 Dose: 1 mg Multivitamins/Minerals/Vitamin C (Tab-A-Vit -) 1 tab PO DAILY [facility] Last Admin: 08/07/18 09:39 Dose: 1 tab Nicotine (Nicoderm Patch -) 14 mg TD DAILY [facility] Last Admin: 08/07/18 09:41 Dose: 14 mg Ondansetron HCl (Zofran Injection) 4 mg IVPUSH Q8H PRN PRN Reason: NAUSEA Last Admin: 08/06/18 20:05 Dose: 4 mg Ondansetron HCl (Zofran Injection) 4 mg IVPUSH Q4H PRN PRN Reason: NAUSEA AND/OR VOMITING Potassium Chloride (K-Dur -) 40 meq PO DAILY [facility] Last Admin: 08/07/18 09:39 Dose: 40 meq Potassium Phos/Sodium Phos (Phos-Nak Packet -) 1 packet PO TID [facility] Thiamine HCl (Vitamin B1 -) 100 mg PO DAILY [facility] Last Admin: 08/07/18 09:40 Dose: 100 mg - Allergies Allergies: Allergies Allergy/AdvReac Type Severity Reaction Status Date / Time Penicillins Allergy Intermediate Difficulty Verified 08/29/13 12:04 Breathing mushroom Allergy Severe Difficulty Uncoded 08/29/13 12:04 Breathing - Current Living Status Usual Living Arrangement: With Parent - Current Mental Status Evaluation Appearance: Disheveled Attitude: Uncooperative - Affect Affect: Expansive, Constrictive Appropriateness: Appropriate to Content - Mood Mood: Irritable - Speech/Language Expressive: Coherent - Psychomotor Activity Psychomotor Activity: Slowed - Thought Process Thought Process: Intact - Thought Content Hallucinations: Absent Delusions: Absent - Self Perception Self Perception: No Impairment - Cognition Attention: Alert Orientation: Time Memory, Immediate Recall: Intact Memory, Short Term: 2/3 Memory, Remote with Promptin/3 - Concentration Serial Sevens Intact: No Simple Calculations Intact: Yes - Abstraction Proverb Interpretation: Impaired Judgement: Moderately Impaired - Insight Insight: Impaired - Impulse Control Impulse Control: Minimally Impaired - Suicidal Ideation Suicidal Ideation: No - Homicidal Ideation Homicidal Ideation: No Assessment/Plan 1) No acute Mental illness thghat needs to be addressed at this time, 2) Continue with Librium Dtox. 3) discharge when medically clear.
[2018-08-07 15:42] LABS: PLATELET ESTIMATE DECREASED
[2018-08-07] MEDS ORDERED: SODIUM PHOSPHATE - 21 MM in SODIUM CHLORIDE 250 ML IVPB ONE (16:00)
[2018-08-07] MEDS: NAPH,MB-DB/K PH,MBDB POWDER PACKET PO SCH ×2 (16:12→21:40)
[2018-08-07 22:06] LABS: MAGNESIUM 1.8 mg/dL (1.8-2.4); PHOSPHOROUS 1.6 mg/dl (2.5-4.6)
[2018-08-07 22:37] LABS: ALBUMIN 2.8 g/dl (3.5-5.0); ALK PHOS 133 U/L (32-92); ANION GAP 7 MMOL/L (8-16); BILIRUBIN,TOTAL 10.2 mg/dl (0.2-1.0); BLOOD UREA NITROGEN 5 mg/dl (7-18); CALCIUM 8.3 mg/dl (8.4-10.2); CHLORIDE 107 mmol/L (98-107); CO2 22 mmol/L (22-28); GLUCOSE,RANDOM 94 mg/dl (74-106); POTASSIUM 4.2 mmol/L (3.5-5.1); SGOT/AST 158 U/L (10-42); SGPT/ALT 42 U/L (10-40); SODIUM 136 mmol/L (136-145); TOT PROT 6.2 g/dl (6.4-8.3)
[2018-08-07 22:38] LABS: CREATININE < 0.6 mg/dl (0.6-1.3)
[2018-08-08] MEDS: LACTULOSE 20 GM/30 ML UDC (FOR ORAL USE ONLY) PO SCH ×3 (05:25→21:40)
[2018-08-08] MEDS: chlordiazePOXIDE HCL 25 MG CAPSULE PO SCH ×3 (06:43→17:32)
[2018-08-08] MEDS: NAPH,MB-DB/K PH,MBDB POWDER PACKET PO SCH ×3 (06:43→21:40)
[2018-08-08] MEDS: ONDANSETRON 4 MG/2 ML VIAL IVPUSH PRN (06:47)
--- NOTE | 2018-08-08 08:56 | PN ---
Physical Exam: SUBJECTIVE: Patient seen and examined wants to be left alone, voices no complaints OBJECTIVE::Patient is a 47 y/o female with a past medical History of asthma, anxiety, depression And alcohol abuse. Patient reports drinking 2 pints a day of vodka for the past 10 years. patient was admitted from the emergency department for alcohol Withdrawal Vital Signs Period Temp Pulse Resp BP Sys/Bautista Pulse Ox Last 24 Hr 98.3 F-99.2 F 86-92 16-18 91-100/54-60 99-99 GENERAL:Patient is Awake, alert and fully oriented HEAD: Normal with no signs of trauma. EYES: Pupils equal, round and reactive to light, extraocular movements intact, sclera icteric, conjunctiva clear. No lid lag. EARS, NOSE, THROAT: Ears normal, nares patent, oropharynx clear without exudates. Moist mucous membranes. NECK: Normal range of motion, supple without lymphadenopathy, JVD, or masses. LUNGS: Breath sounds equal, clear to auscultation bilaterally. No wheezes, and no crackles. No accessory muscle use. HEART: Regular rate and rhythm, normal S1 and S2 without murmur, rub or gallop. ABDOMEN: Soft, nontender, not distended, normoactive bowel sounds, no guarding, no rebound, no masses. No hepatomegaly or splenomegaly. MUSCULOSKELETAL: Normal range of motion at all joints. No bony deformities or tenderness. No CVA tenderness. UPPER EXTREMITIES: 2+ pulses, warm, well-perfused. No cyanosis. No clubbing. No peripheral edema. Fine Bilateral upper extremity tremors LOWER EXTREMITIES: 2+ pulses, warm, well-perfused. No calf tenderness. No peripheral edema. NEUROLOGICAL: Cranial nerves II-XII intact. Normal speech. Normal gait. PSYCHIATRIC: non-cooperative. does not make eye contact SKIN: Warm, dry, normal turgor, echymosis noted to bilateral upper extremities. no rashes or lesions noted, normal capillary refill. Laboratory Results - last 24 hr 08/07/18 08/07/18 08/07/18 13:07 13:07 13:07 WBC 8.0 RBC 3.34 L Hgb 12.2 Hct 36.3 MCV 108.7 H MCH 36.6 H MCHC 33.7 RDW 13.8 Plt Count 44 L* MPV 9.6 Absolute Neuts (auto) 5.1 Neutrophils % No Result Required. Neutrophils % (Manual) 68.0 Lymphocytes % No Result Required. Lymphocytes % (Manual) 22.0 Monocytes % (Manual) 9 Eosinophils % (Manual) 1.0 Platelet Estimate Decreased Sodium 130 L Potassium 4.6 D Chloride 106 Carbon Dioxide 20 L Anion Gap 4 L BUN 5 L Creatinine 0.3 L Creat Clearance w eGFR > 60 Random Glucose 99 Calcium 8.3 L Phosphorus 1.0 L* D Magnesium 1.6 L Total Bilirubin 10.6 H D AST 181 H ALT 46 H Alkaline Phosphatase 139 H Ammonia 72.70 H Total Protein 6.5 Albumin 3.0 L Vitamin B12 08/07/18 08/07/18 08/07/18 13:39 21:30 22:00 WBC RBC Hgb Hct MCV MCH MCHC RDW Plt Count MPV Absolute Neuts (auto) Neutrophils % Neutrophils % (Manual) Lymphocytes % Lymphocytes % (Manual) Monocytes % (Manual) Eosinophils % (Manual) Platelet Estimate Sodium 136 Potassium 4.2 Chloride 107 Carbon Dioxide 22 Anion Gap 7 L BUN 5 L Creatinine < 0.6 L Creat Clearance w eGFR > 60 Random Glucose 94 Calcium 8.3 L Phosphorus 1.6 L D Magnesium 1.8 Total Bilirubin 10.2 H AST 158 H ALT 42 H Alkaline Phosphatase 133 H Ammonia Total Protein 6.2 L Albumin 2.8 L Vitamin B12 624 Active Medications Generic Name Dose Route Start Last Admin Trade Name Freq PRN Reason Stop Dose Admin Albuterol Sulfate 2 puff 08/05/18 04:38 Ventolin Hfa Inhaler - IH Q4H PRN SHORT OF BREATH/WHEEZING Chlordiazepoxide HCl 50 mg 08/05/18 18:43 08/06/18 20:05 Librium - PO 08/08/18 10:06 50 mg Q4H PRN Administration WITHDRAWAL(CONT SUBST) Chlordiazepoxide HCl 25 mg 08/07/18 23:00 08/08/18 06:43 Librium - PO 08/08/18 17:01 Not Given [id number] MAXINE Chlordiazepoxide HCl 15 mg 08/08/18 23:00 Librium - PO 08/09/18 17:01 [id number] MAXINE Chlordiazepoxide HCl 10 mg 08/09/18 23:00 Librium - PO 08/10/18 17:01 [id number] MAXINE Escitalopram Oxalate 20 mg 08/05/18 10:15 08/07/18 09:40 Lexapro - PO 20 mg DAILY MAXINE Administration Folic Acid 1 mg 08/05/18 10:00 08/07/18 09:40 Folic Acid - PO 1 mg DAILY MAXINE Administration Guaifenesin 10 ml 08/05/18 03:56 08/07/18 01:51 Robitussin Dm - PO 10 ml Q6H PRN Administration COUGH Potassium Chloride/Sodium Chloride 20 meq in 1,000 mls @ 100 mls/hr 08/05/18 09:45 08/07/18 09:30 Ns+20 Meq Kcl - IV 100 mls/hr ASDIR MAXINE Administration Lactulose 20 gm 08/05/18 12:00 08/08/18 05:25 Cephulac (Oral Use) PO Not Given Q8H MAXINE Lorazepam 1 mg 08/05/18 21:21 08/07/18 14:30 Ativan Injection - IVPUSH 1 mg Q6H PRN Administration WITHDRAWAL(CONT SUBST) Magnesium Oxide 400 mg 08/08/18 10:00 Mag-Ox - PO BID MAXINE Multivitamins/Minerals/Vitamin C 1 tab 08/05/18 10:45 08/07/18 09:39 Tab-A-Vit - PO 1 tab DAILY MAXINE Administration Nicotine 14 mg 08/05/18 10:30 08/07/18 09:41 Nicoderm Patch - TD 14 mg DAILY MAXINE Administration Ondansetron HCl 4 mg 08/06/18 20:03 Zofran Injection IVPUSH Q4H PRN NAUSEA AND/OR VOMITING Potassium Chloride 40 meq 08/05/18 10:00 08/07/18 09:39 K-Dur - PO 40 meq DAILY MAXINE Administration Potassium Phos/Sodium Phos 1 packet 08/07/18 15:00 08/08/18 06:43 Phos-Nak Packet - PO Not Given TID MAXINE Thiamine HCl 100 mg 08/05/18 10:00 08/07/18 09:40 Vitamin B1 - PO 100 mg DAILY MAXINE Administration IMAGING head ct: no acute pathology chest xray: no infilitrate no effusion noted ASSESSMENT/PLAN: 1) PSYCH alcohol abuse - pt endorses she drinks 2 pints of vodka daily for the past 10 years, will continue libirium protocol with prn ativan - lengthy discussion with patient in regards to alcohol detox, patient is requesting alcohol detox - Dr Diaz, substance abuse physician consulted and following - fall risk precautions depression anxiety - patient denies any suicidal or homicidal ideation will continue lexapro - psychiatry input appreciated tobacco use - continue nicoderm patch 2) GI alcohol induced hepatitis - ast/alt trending downward, hepatitis panel noted - elevated amnonia level continue lactulose - avoid hepatoxic agents - appreciate GI input 3) pulm asthma - no acute exacerbation at this time continue when necessary albuterol f/e/n - regular diet - replete magnesium, ppx - hold chemical ac due to Thrombocytopenia - Pepcid - SCD/Eric - physical therapy evaluation dispo: pt requires inpatient admission
[2018-08-08] MEDS: MAGNESIUM OXIDE 400 MG TABLET (FP) PO SCH ×2 (11:00→21:40)
[2018-08-08] MEDS: THIAMINE HCL 100 MG TABLET (FP) PO SCH (11:00)
[2018-08-08] MEDS: ESCITALOPRAM OXALATE 20 MG TABLET (FP) PO SCH (11:00)
[2018-08-08] MEDS: MULTIVITAMINS (DAILY MVI) TABLET (FP) PO SCH (11:00)
[2018-08-08] MEDS: NICOTINE 14 MG/24 HOURS TOPICAL PATCH TD SCH (11:00)
[2018-08-08] MEDS: FOLIC ACID 1 MG TABLET (FP) PO SCH (11:00)
[2018-08-08] MEDS ORDERED: chlordiazePOXIDE HCL 10 MG CAPSULE PO SCH (11:00)
[2018-08-08] MEDS: POTASSIUM CHLORIDE TABS 20 MEQ TABLET.ER (FP) PO SCH (11:00)
[2018-08-08 11:27] LABS: EOS % 0.9 % (0-4.5); HEMATOCRIT 34.3 % (32.4-45.2); HEMOGLOBIN 11.6 GM/dl (10.7-15.3); MCH 36.9 pg (25.7-33.7); MCHC 33.8 g/dl (32.0-36.0); MEAN CELL VOLUME 109.3 fl (80-96); MEAN PLT VOLUME 9.1 fl (7.5-11.1); MONO % 13.2 % (3.8-10.2); NEUT % 71.9 % (42.8-82.8); PLATELET COUNT 58 K/MM3 (134-434); RBC 3.14 M/mm3 (3.60-5.2); RDW 14.1 % (11.6-15.6); WHITE BLOOD COUNT 7.3 K/mm3 (4.0-10.8)
[2018-08-08 11:35] LABS: INR 2.57 (0.82-1.09); PROTHROMBIN TIME (PATIENT) 28.2 SEC (10.2-13.0)
[2018-08-08 11:47] LABS: ALBUMIN 2.6 g/dl (3.5-5.0); ALK PHOS 121 U/L (32-92); ANION GAP 5 MMOL/L (8-16); BILIRUBIN,TOTAL 10.7 mg/dl (0.2-1.0); BLOOD UREA NITROGEN 6 mg/dl (7-18); CALCIUM 7.7 mg/dl (8.4-10.2); CHLORIDE 108 mmol/L (98-107); CO2 21 mmol/L (22-28); GLUCOSE,RANDOM 102 mg/dl (74-106); MAGNESIUM 1.6 mg/dL (1.8-2.4); PHOSPHOROUS 3.2 mg/dl (2.5-4.6); POTASSIUM 4.1 mmol/L (3.5-5.1); SGOT/AST 132 U/L (10-42); SGPT/ALT 41 U/L (10-40); SODIUM 134 mmol/L (136-145); TOT PROT 5.9 g/dl (6.4-8.3)
[2018-08-08 11:50] LABS: CREATININE < 0.6 mg/dl (0.6-1.3)
[2018-08-08] MEDS ORDERED: MAGNESIUM SULFATE IN WATER 2 GM/50 ML IVPB IVPB ONE (13:30)
--- NOTE | 2018-08-08 14:55 | PN ---
Progress Note (short form) - Note Progress Note: Patient seen and chart/labs reviewed; consult dictated. Patient with chronic ETOH abuse x years and admission with alcoholic hepatitis, encephalopathy and likely acute ETOH withdrawal. Being treated with fluids, detox regimen and seen by Psych. Agree with ongoing care and need for outpatient rehab/detox. Likely with significant liver disease (low platelets, elevated INR, spider angiomata and encephalopathy). If deteriorates, need to transfer to ICU setting. When more alert, can begin feeds as tolerated (low protein)
--- NOTE | 2018-08-08 16:34 | CONS ---
DATE OF CONSULTATION: 08/08/2018 Asked to evaluate this 47-year-old female admitted with alcohol abuse. The patient is a 47-year-old female with a long history of alcohol abuse, drinking at least 2 pints a day of vodka for over 10 years. She has a history of asthma, depression, and anxiety as well. She was admitted via the emergency room with intoxication, found to have a markedly elevated serum alcohol level and blood work including an AST 181 and ALT level of 46, an alkaline phosphatase of 139, with an ammonia level of 72.7. She had a normal BUN of 5 and creatinine 0.8. Her total bilirubin was 10.6. Her initial admitting blood counts included a hemoglobin 12.3, hematocrit 37, with an MCV of 107.6 and a platelet count of 42,000 with a white count of 8.4. INR was 1.88. Patient has been treated with IV fluids and is currently receiving a regimen to prevent to alcohol withdrawal including benzodiazepines. She also was started on lactulose for her elevated serum ammonia level and likely hepatic encephalopathy. The patient has not had any recent vomiting or abdominal pain. She is slightly lethargic and appears slightly confused. PHYSICAL EXAMINATION: General: The patient is currently seen lying in bed, responsive but confused. HEENT: She is icteric with mild jaundice. Skin: She has spider angioma over the skin in addition to her jaundice. Lungs: Clear. Cardiac: Regular rate and rhythm. Abdomen: Soft. There is no obvious fluid wave, but there is a markedly enlarged liver. Repeat laboratory tests include her hemoglobin of 11.6 and hematocrit 34.3, with MCV of 109.3. Her platelet count has risen to 58. Her electrolytes are normal with her AST and ALT improving to 142/41, but her bilirubin remaining elevated at 10.7. Her repeat INR was 2.57. Patient with significant alcoholic liver disease and acute alcohol intoxication at admission with probable hepatic encephalopathy and alcoholic hepatitis. At the present time, she appears relatively stable on alcohol detoxification regimen without signs of gastrointestinal bleeding. She is on lactulose for her encephalopathy. Patient will need long-term rehab and avoidance of alcohol. She currently has evidence of liver disease as manifested by the elevated INR. In addition, her ammonia level suggests significant liver dysfunction. No acute GI intervention recommended at the present time other than the supportive care. Will follow as needed. DARREN PASTOR M.D. ANDREINA/[id number]
[2018-08-08] MEDS: SODIUM CHLORIDE 0.9%/KCL 20 MEQ/1,000 ML INFUS.BAG IV SCH (17:32)
[2018-08-09] MEDS: chlordiazePOXIDE 5 MG CAPSULE PO SCH ×5 (01:06→23:00)
[2018-08-09] MEDS: NAPH,MB-DB/K PH,MBDB POWDER PACKET PO SCH ×3 (05:14→22:07)
[2018-08-09] MEDS: LACTULOSE 20 GM/30 ML UDC (FOR ORAL USE ONLY) PO SCH ×4 (05:14→22:02)
--- NOTE | 2018-08-09 07:27 | PN ---
Physical Exam: SUBJECTIVE: Patient seen and examined, voices no complaints want to be left alone, denies any abdominal pain, reports decreased appetitie. OBJECTIVE:Patient is a 47 y/o female with a past medical History of asthma, anxiety, depression And alcohol abuse. Patient reports drinking 2 pints a day of vodka for the past 10 years. patient was admitted from the emergency department for alcohol Withdrawal, transanitmitis, and thrombocytopenia. Vital Signs Period Temp Pulse Resp BP Sys/Bautista Pulse Ox Last 24 Hr 97.6 F-99.2 F 79-93 18-20 94-110/45-70 94-94 GENERAL: The patient is awake, alert, and fully oriented, agitated. HEAD: Normal with no signs of trauma. EYES: PERRL, extraocular movements intact, sclera ecteric, conjunctiva clear. No ptosis. ENT: Ears normal, nares patent, oropharynx clear without exudates, moist mucous membranes. NECK: Trachea midline, full range of motion, supple. LUNGS: Breath sounds equal, clear to auscultation bilaterally, no wheezes, no crackles, no accessory muscle use. HEART: Regular rate and rhythm, S1, S2 without murmur, rub or gallop. ABDOMEN: Soft, nontender, nondistended, normoactive bowel sounds, no guarding, no rebound, no hepatosplenomegaly, no masses. EXTREMITIES: 2+ pulses, warm, well-perfused, no edema. NEUROLOGICAL: Cranial nerves II through XII grossly intact. Normal speech, gait not observed. PSYCH: Normal mood, normal affect. SKIN: echymosis to billateral proximal upper extremities. Warm, dry, normal turgor, no rashes or lesions noted Laboratory Results - last 24 hr 08/08/18 08/08/18 08/08/18 11:23 11:23 11:23 WBC 7.3 RBC 3.14 L Hgb 11.6 Hct 34.3 MCV 109.3 H MCH 36.9 H MCHC 33.8 RDW 14.1 Plt Count 58 L MPV 9.1 Absolute Neuts (auto) 5.2 Neutrophils % 71.9 Lymphocytes % 12.0 Monocytes % 13.2 H Eosinophils % 0.9 Basophils % 2.0 PT with INR 28.2 H INR 2.57 H Sodium 134 L Potassium 4.1 Chloride 108 H Carbon Dioxide 21 L Anion Gap 5 L BUN 6 L Creatinine < 0.6 L Creat Clearance w eGFR > 60 Random Glucose 102 Calcium 7.7 L Phosphorus 3.2 D Magnesium 1.6 L Total Bilirubin 10.7 H AST 132 H ALT 41 H Alkaline Phosphatase 121 H D Total Protein 5.9 L Albumin 2.6 L Active Medications Generic Name Dose Route Start Last Admin Trade Name Freq PRN Reason Stop Dose Admin Albuterol Sulfate 2 puff 08/05/18 04:38 Ventolin Hfa Inhaler - IH Q4H PRN SHORT OF BREATH/WHEEZING Chlordiazepoxide HCl 15 mg 08/08/18 23:00 08/09/18 05:14 Librium - PO 08/09/18 17:01 15 mg [id number] MAXINE Administration Chlordiazepoxide HCl 10 mg 08/09/18 23:00 Librium - PO 08/10/18 17:01 [id number] MAXINE Escitalopram Oxalate 20 mg 08/05/18 10:15 08/08/18 11:00 Lexapro - PO 20 mg DAILY MAXINE Administration Folic Acid 1 mg 08/05/18 10:00 08/08/18 11:00 Folic Acid - PO 1 mg DAILY MAXINE Administration Guaifenesin 10 ml 08/05/18 03:56 08/07/18 01:51 Robitussin Dm - PO 10 ml Q6H PRN Administration COUGH Potassium Chloride/Sodium Chloride 20 meq in 1,000 mls @ 100 mls/hr 08/05/18 09:45 08/08/18 17:32 Ns+20 Meq Kcl - IV 100 mls/hr ASDIR MAXINE Administration Lactulose 20 gm 08/05/18 12:00 08/09/18 06:57 Cephulac (Oral Use) PO Not Given Q8H MAXINE Lorazepam 1 mg 08/05/18 21:21 08/07/18 14:30 Ativan Injection - IVPUSH 1 mg Q6H PRN Administration WITHDRAWAL(CONT SUBST) Magnesium Oxide 400 mg 08/08/18 10:00 08/08/18 21:40 Mag-Ox - PO 400 mg BID MAXINE Administration Multivitamins/Minerals/Vitamin C 1 tab 08/05/18 10:45 08/08/18 11:00 Tab-A-Vit - PO 1 tab DAILY MAXINE Administration Nicotine 14 mg 08/05/18 10:30 08/08/18 11:00 Nicoderm Patch - TD 14 mg DAILY MAXINE Administration Ondansetron HCl 4 mg 08/06/18 20:03 Zofran Injection IVPUSH Q4H PRN NAUSEA AND/OR VOMITING Potassium Chloride 40 meq 08/05/18 10:00 08/08/18 11:00 K-Dur - PO 40 meq DAILY MAXINE Administration Potassium Phos/Sodium Phos 1 packet 08/07/18 15:00 08/09/18 05:14 Phos-Nak Packet - PO 1 packet TID MAXINE Administration Thiamine HCl 100 mg 08/05/18 10:00 08/08/18 11:00 Vitamin B1 - PO 100 mg DAILY MAXINE Administration IMAGING head ct: no acute pathology chest xray: no infilitrate no effusion noted ultrasound of abd: Hepatomegaly with fatty infiltration, gallbladder sludge, trace of pericholecystic free fluid suspicious for acute cholecystitis ASSESSMENT/PLAN: 1) PSYCH alcohol abuse - pt endorses she drinks 2 pints of vodka daily for the past 10 years, continue libirium protocol day 3 with prn ativan - lengthy discussion with patient in regards to alcohol detox, patient is requesting alcohol detox, [facility], drug abuse social worker consulted - Dr Diaz, substance abuse physician consulted and following - fall risk precautions depression anxiety - patient denies any suicidal or homicidal ideation will continue lexapro - psychiatry input appreciated tobacco use - continue nicoderm patch 2) GI alcohol induced hepatitis - ast/alt trending downward, hepatitis panel noted - elevated amnonia level continue lactulose - avoid hepatoxic agents - GI consulted and following acute cholecystitis - ultrasound of abd reviewed, suspicous for acute liliam, levaquin and flagyl ordered - pending mrcp - appreciate surgery input 3) pulm asthma - no acute exacerbation at this time continue when necessary albuterol f/e/n - regular diet - replete magnesium, ppx - hold chemical ac due to Thrombocytopenia - Pepcid - SCD/Eric - physical therapy evaluation dispo: pt requires inpatient admission
[2018-08-09 09:11] LABS: BASO % 1.8 % (0-2.0); EOS % 3.2 % (0-4.5); HEMATOCRIT 32.7 % (32.4-45.2); HEMOGLOBIN 11.2 GM/dl (10.7-15.3); LYMPH % 20.9 % (8-40); MCH 37.4 pg (25.7-33.7); MCHC 34.3 g/dl (32.0-36.0); MEAN CELL VOLUME 108.8 fl (80-96); MEAN PLT VOLUME 8.8 fl (7.5-11.1); MONO % 17.3 % (3.8-10.2); NEUT % 56.8 % (42.8-82.8); PLATELET COUNT 65 K/MM3 (134-434); RDW 15.1 % (11.6-15.6); WHITE BLOOD COUNT 7.3 K/mm3 (4.0-10.8)
[2018-08-09 09:41] LABS: ALBUMIN 2.4 g/dl (3.5-5.0); ALK PHOS 109 U/L (32-92); ANION GAP 1 MMOL/L (8-16); BLOOD UREA NITROGEN 6 mg/dl (7-18); CALCIUM 7.3 mg/dl (8.4-10.2); CHLORIDE 112 mmol/L (98-107); CO2 21 mmol/L (22-28); CREATININE 0.4 mg/dl (0.6-1.3); GLUCOSE,RANDOM 90 mg/dl (74-106); MAGNESIUM 1.9 mg/dL (1.8-2.4); PHOSPHOROUS 2.7 mg/dl (2.5-4.6); POTASSIUM 4.7 mmol/L (3.5-5.1); SGOT/AST 117 U/L (10-42); SGPT/ALT 36 U/L (10-40); SODIUM 134 mmol/L (136-145); TOT PROT 5.6 g/dl (6.4-8.3)
[2018-08-09] MEDS: SODIUM CHLORIDE 0.9%/KCL 20 MEQ/1,000 ML INFUS.BAG IV SCH (10:27)
[2018-08-09] MEDS: MAGNESIUM OXIDE 400 MG TABLET (FP) PO SCH ×2 (10:31→22:07)
[2018-08-09] MEDS: POTASSIUM CHLORIDE TABS 20 MEQ TABLET.ER (FP) PO SCH (10:32)
[2018-08-09] MEDS: ESCITALOPRAM OXALATE 20 MG TABLET (FP) PO SCH (10:32)
[2018-08-09] MEDS: THIAMINE HCL 100 MG TABLET (FP) PO SCH (10:32)
[2018-08-09] MEDS: MULTIVITAMINS (DAILY MVI) TABLET (FP) PO SCH (10:32)
[2018-08-09] MEDS: NICOTINE 14 MG/24 HOURS TOPICAL PATCH TD SCH (10:33)
[2018-08-09] MEDS: FOLIC ACID 1 MG TABLET (FP) PO SCH (10:33)
--- NOTE | 2018-08-09 11:50 | CONSULT ---
Consult Consult Specialty:: General Surgery Referred by:: Zuleyka Sharma Reason for Consultation:: cholecystitis - History of Present Illness Chief Complaint: abdominal pain History of Present Illness: 47 yo female with PMH asthma, anxiety, depression And alcohol abuse. Patient reports drinking 2 pints a day of vodka for the past 10 years. Patient reports she self-discontinued her lexapro, "because it wasn't working." Patient is a poor historian and reports she was brought to emergency department by her family member because she was intoxicated. RUQ sono showed sludge and GB wall thickening and pericholecstic fluid, in addition to fatty change in liver, PLt low and Amonia elevated. We were asked to assess. - History Source History Provided By: Patient, Medical Record Limitations to Obtaining History: No Limitations - Past Medical History ...LMP: 11/02/10 ...: No - Alcohol/Substance Use Hx Alcohol Use: Yes - Smoking History Smoking history: Current every day smoker Have you smoked in the past 12 months: Yes Aproximately how many cigarettes per day: 20 - Social History Usual Living Arrangement: With Parent Home Medications - Allergies Allergies/Adverse Reactions: Allergies Allergy/AdvReac Type Severity Reaction Status Date / Time Penicillins Allergy Intermediate Difficulty Verified 08/29/13 12:04 Breathing mushroom Allergy Severe Difficulty Uncoded 08/29/13 12:04 Breathing - Home Medications Home Medications: Ambulatory Orders Escitalopram Oxalate [Lexapro -] 20 mg PO DAILY #30 tablet 08/30/13 Albuterol Sulfate Inhaler - [Ventolin HFA Inhaler -] 2 inh PO Q4H PRN #1 inh 10/03 Montelukast Na [Singulair -] 10 mg PO HS #30 tablet 09/02/13 Salmeterol/Fluticasone [Advair 500Mcg/50Mcg -] 1 inh IH BID #1 inh 09/02/13 Albuterol 2.5/Ipratropium 0.5 [Duoneb -] 1 neb NEB Q4H PRN #1 vial 06/04/14 Albuterol Sulfate Inhaler - [Ventolin HFA Inhaler -] 1 - 2 inh PO Q4H PRN #1 inhaler 06/04/14 Buspirone HCl [Buspar -] 20 mg PO HS 06/04/14 Quetiapine Fumarate [Seroquel -] 0 mg PO HS 06/04/14 Family Disease History - Family Disease History Family Disease History: Heart Disease: Father (HTN,CAD), Other: Brother (ALCOHOL ) Review of Systems - Review of Systems Constitutional: reports: Unintentional Wgt. Loss. denies: Chills, Fever Eyes: denies: Blurred Vision, Recent Change in Vision HENT: denies: Difficult Swallowing, Throat Pain Neck: denies: Decreased ROM, Pain on Movement Cardiovascular: denies: Chest Pain, Palpitations Respiratory: denies: Cough, SOB Gastrointestinal: denies: Abdominal Pain, Constipation, Diarrhea Genitourinary: denies: Discharge, Dysuria Breasts: reports: No Symptoms Reported. denies: Pain Musculoskeletal: denies: Back Pain, Crepitus, Muscle Pain Integumentary: denies: Erythema, Lesions, Rash Neurological: denies: Seizure, Syncope Endocrine: denies: Unexplained Weight Gain, Unexplained Weight Loss Hematology/Lymphatic: denies: Easily Bruised, Excessive Bleeding Psychiatric: denies: Anxiety, Depression Physical Exam Vital Signs: Vital Signs Temperature 97.6 F 08/09/18 10:00 Pulse Rate 81 08/09/18 10:00 Respiratory Rate 18 08/09/18 10:00 Blood Pressure 99/49 L 08/09/18 10:00 O2 Sat by Pulse Oximetry (%) 100 08/09/18 08:00 Constitutional: Yes: Well Nourished, No Distress, Calm, Thin Eyes: Yes: Conjunctiva Clear, EOM Intact HENT: Yes: Atraumatic. No: Normocephalic Neck: Yes: Supple, Trachea Midline Cardiovascular: Yes: Regular Rate and Rhythm, S1, S2 Respiratory: Yes: Regular, CTA Bilaterally Gastrointestinal: Yes: Normal Bowel Sounds, Soft, Tenderness, Tenderness, Epigastrium, Tenderness, Rebound ...Rectal Exam: Yes: Deferred Renal/: No: CVA Tenderness - Left, CVA Tenderness - Right Musculoskeletal: No: Muscle Pain, Muscle Weakness Extremities: No: Cool, Cyanosis Edema: No Peripheral Pulses WNL: Yes Integumentary: No: Jaundice, Rash Neurological: Yes: Alert, Oriented Psychiatric: Yes: Alert, Oriented Labs: CBC, BMP 08/09/18 08:25 08/09/18 08:25 Imaging - Results Ultrasound: Report Reviewed, Image Reviewed Problem List - Problems (1) Biliary colic Assessment/Plan: 47 yo female MMP with No acute surgical intervention at this time, would be a candidate for elective cholecystectomy. NPO and IVF hydration IV antibiotics serial LFT's GI evaluation for ERCP? Tbili 10.1 Consider IR for cholecystostomy placement F/u in surgery clinic 1 month after discharge Thank you for the opportunity to participate in the care of this patient. Code(s): K80.50 - CALCULUS OF BILE DUCT W/O CHOLANGITIS OR CHOLECYST W/O OBST (2) Alcohol use disorder Code(s): PDF0294 - (3) Alcohol dependence Code(s): F10.20 - ALCOHOL DEPENDENCE, UNCOMPLICATED (4) Alcoholic hepatitis Code(s): K70.10 - ALCOHOLIC HEPATITIS WITHOUT ASCITES (5) Asthma Code(s): J45.909 - UNSPECIFIED ASTHMA, UNCOMPLICATED (6) Essential hypertension Code(s): I10 - ESSENTIAL (PRIMARY) HYPERTENSION
--- NOTE | 2018-08-09 15:17 | PN ---
Progress Note (short form) - Note Progress Note: Patient more alert but has multiple complaints of pain in various body parts. Aware she is in [facility], and knows age, name. Labs notable for improving WBC, platelets and LFTS. INR higher Does have some tenderness in RUQ without Johnson's sign or rebound. Sono RUQ suggestive of acute cholecystitis and dilated CBD but no actual gallstones seen and LFTs improving. Started on antibiotics for ?acute GB (?cholangitis); would obtain MRI liver/GB/ Biliary tract. VSS +jaundice afebrile no tremor. Abdomen soft +BS mild RUQ tenderness no mass no fluid wave Appears to have resolving hepatic encephalopathy and alcoholic hepatitis Unsure if patient has acute cholecystitis and/or CBD stone - would follow LFTS and await MRI On antibiotics with Surgical consult pending. Would repeat INR. ammonia level PO liquids as tolerated
[2018-08-09] MEDS: LORazepam 2 MG/ML SDV VIAL IVPUSH PRN (22:08)
[2018-08-09 22:33] LABS: ACTIVATED PTT 39.9 SECONDS (25.2-36.5)
[2018-08-09 22:37] LABS: INR 2.42 (0.82-1.09); PROTHROMBIN TIME (PATIENT) 26.6 SEC (10.2-13.0)
[2018-08-10] MEDS: LACTULOSE 20 GM/30 ML UDC (FOR ORAL USE ONLY) PO SCH ×3 (03:37→20:55)
[2018-08-10] MEDS: chlordiazePOXIDE 5 MG CAPSULE PO SCH ×3 (06:36→17:02)
[2018-08-10] MEDS: POTASSIUM CHLORIDE TABS 20 MEQ TABLET.ER (FP) PO SCH (10:18)
[2018-08-10] MEDS: MAGNESIUM OXIDE 400 MG TABLET (FP) PO SCH ×2 (10:18→21:00)
[2018-08-10] MEDS: ESCITALOPRAM OXALATE 20 MG TABLET (FP) PO SCH (10:18)
[2018-08-10] MEDS: FOLIC ACID 1 MG TABLET (FP) PO SCH (10:18)
[2018-08-10] MEDS: NAPH,MB-DB/K PH,MBDB POWDER PACKET PO SCH ×2 (10:19→21:00)
[2018-08-10] MEDS: MULTIVITAMINS (DAILY MVI) TABLET (FP) PO SCH (10:19)
[2018-08-10] MEDS: NICOTINE 14 MG/24 HOURS TOPICAL PATCH TD SCH (10:19)
[2018-08-10] MEDS: THIAMINE HCL 100 MG TABLET (FP) PO SCH (10:19)
[2018-08-10 10:53] LABS: HEMOGLOBIN 10.5 GM/dl (10.7-15.3); PLATELET COUNT 85 K/MM3 (134-434)
--- NOTE | 2018-08-10 10:53 | PN ---
Progress Note (short form) - Note Progress Note: Subjective: The patient was seen at the bedside. She reports feeling "crappy" today. She was unable to elaborate on her symptoms and asked that I leave the room as she was just waking up. Current Medications Generic Name Dose Route Start Last Admin Trade Name Freq PRN Reason Stop Dose Admin Albuterol Sulfate 2 puff 08/05/18 04:38 Ventolin Hfa Inhaler - IH Q4H PRN SHORT OF BREATH/WHEEZING Chlordiazepoxide HCl 10 mg 08/09/18 23:00 08/10/18 06:36 Librium - PO 08/10/18 17:01 10 mg [id number] MAXINE Administration Escitalopram Oxalate 20 mg 08/05/18 10:15 08/09/18 10:32 Lexapro - PO 20 mg DAILY MAXINE Administration Folic Acid 1 mg 08/05/18 10:00 08/09/18 10:33 Folic Acid - PO 1 mg DAILY MAXINE Administration Guaifenesin 10 ml 08/05/18 03:56 08/07/18 01:51 Robitussin Dm - PO 10 ml Q6H PRN Administration COUGH Potassium Chloride/Sodium Chloride 20 meq in 1,000 mls @ 100 mls/hr 08/05/18 09:45 08/09/18 10:27 Ns+20 Meq Kcl - IV 100 mls/hr ASDIR MAXINE Administration Metronidazole 500 mg in 100 mls @ 100 mls/hr 08/09/18 10:45 08/10/18 03:02 Flagyl 500mg Premixed Ivpb - IVPB 100 mls/hr Q8H-IV MAXINE Administration Levofloxacin 750 mg in 150 mls @ 100 mls/hr 08/09/18 11:00 08/09/18 11:16 Levaquin 750 Mg Premixed Ivpb - IVPB 100 mls/hr DAILY MAXINE Administration Protocol Lactulose 20 gm 08/05/18 12:00 08/10/18 03:37 Cephulac (Oral Use) PO Not Given Q8H MAXINE Lorazepam 1 mg 08/05/18 21:21 08/09/18 22:08 Ativan Injection - IVPUSH 1 mg Q6H PRN Administration WITHDRAWAL(CONT SUBST) Magnesium Oxide 400 mg 08/08/18 10:00 08/09/18 22:07 Mag-Ox - PO 400 mg BID MAXINE Administration Multivitamins/Minerals/Vitamin C 1 tab 08/05/18 10:45 08/09/18 10:32 Tab-A-Vit - PO 1 tab DAILY MAXINE Administration Nicotine 14 mg 08/05/18 10:30 08/09/18 10:33 Nicoderm Patch - TD 14 mg DAILY MAXINE Administration Ondansetron HCl 4 mg 08/06/18 20:03 Zofran Injection IVPUSH Q4H PRN NAUSEA AND/OR VOMITING Potassium Chloride 40 meq 08/05/18 10:00 08/09/18 10:32 K-Dur - PO 40 meq DAILY MAXINE Administration Potassium Phos/Sodium Phos 1 packet 08/09/18 22:00 08/09/18 22:07 Phos-Nak Packet - PO 1 packet BID MAXINE Administration Thiamine HCl 100 mg 08/05/18 10:00 08/09/18 10:32 Vitamin B1 - PO 100 mg DAILY MAXINE Administration Objective: Vital Signs Period Temp Pulse Resp BP Sys/Bautista Pulse Ox Last 24 Hr 97.2 F-99.0 F 77-86 - 81-102/43-62 95-97 Physical Exam: Refused CBCD WBC 7.3 K/mm3 (4.0-10.8) 08/09/18 08:25 RBC 3.00 M/mm3 (3.60-5.2) L 08/09/18 08:25 Hgb 11.2 GM/dl (10.7-15.3) 08/09/18 08:25 Hct 32.7 % (32.4-45.2) 08/09/18 08:25 MCV 108.8 fl (80-96) H 08/09/18 08:25 MCHC 34.3 g/dl (32.0-36.0) 08/09/18 08:25 RDW 15.1 % (11.6-15.6) 08/09/18 08:25 Plt Count 65 K/MM3 (134-434) L 08/09/18 08:25 MPV 8.8 fl (7.5-11.1) 08/09/18 08:25 CMP Sodium 134 mmol/L (136-145) L 08/09/18 08:25 Potassium 4.7 mmol/L (3.5-5.1) 08/09/18 08:25 Chloride 112 mmol/L (98-107) H 08/09/18 08:25 Carbon Dioxide 21 mmol/L (22-28) L 08/09/18 08:25 Anion Gap 1 MMOL/L (8-16) L 08/09/18 08:25 BUN 6 mg/dl (7-18) L 08/09/18 08:25 Creatinine 0.4 mg/dl (0.6-1.3) L 08/09/18 08:25 Creat Clearance w eGFR > 60 (>60) 08/09/18 08:25 Random Glucose 90 mg/dl (74-106) 08/09/18 08:25 Calcium 7.3 mg/dl (8.4-10.2) L 08/09/18 08:25 Total Bilirubin 10.0 mg/dl (0.2-1.0) H 08/09/18 08:25 AST 117 U/L (10-42) H 08/09/18 08:25 ALT 36 U/L (10-40) 08/09/18 08:25 Alkaline Phosphatase 109 U/L (32-92) H D 08/09/18 08:25 Total Protein 5.6 g/dl (6.4-8.3) L 08/09/18 08:25 Albumin 2.4 g/dl (3.5-5.0) L 08/09/18 08:25 ultrasound of abd: Hepatomegaly with fatty infiltration, gallbladder sludge, trace of pericholecystic free fluid suspicious for acute cholecystitis Assessment: This is a 47 year old female with PMHx of asthma, anxiety, depression, alcohol abuse, who presented to the ED with alcohol intoxication. Plan: 1) Acute alcohol withdrawal - Continue Librium taper - Ativan prn - Continue MVI, folic acid - Requesting inpatient rehab upon discharge - Appreciate detox consult 2) Alcoholic hepatitis - INR elevated, level pending today - Continue to trend - Supportive care - Avoid hepatotoxic agents - Appreciate GI consult 3) Hepatic encephalopathy - Appears to be improving - Elevated ammonia level yesterday, f/u level today (pending) - Continue Lactulose 4) Possible acute cholecystitis - Abd ultrasound with possible acute cholecystitis - Continue empiric Levaquin and Flagyl - F/u MRCP - Appreciate surgery consult 5) Depression - Continue Lexapro 6) Asthma - No evidence of acute exacerbation at this time 7) F/E/N: - Regular diet - Monitor electrolytes (pending from today) 8) Prophylaxis: - Hold all chemical DVT prophylaxis 2/2 thrombocytopenia - SCDs bilateraly 9) Dispo: - Requires continued inpatient care CODE STATUS: FULL CODE Visit type - Emergency Visit Emergency Visit: Yes ED Registration Date: 08/04/18 Care time: The patient presented to the Emergency Department on the above date and was hospitalized for further evaluation of their emergent condition. - New Patient This patient is new to me today: Yes Date on this admission: 08/10/18 - Critical Care Critical Care patient: No
[2018-08-10 11:07] LABS: HEMATOCRIT 32.3 % (32.4-45.2); MCH 35.9 pg (25.7-33.7); MCHC 32.5 g/dl (32.0-36.0); MEAN CELL VOLUME 110.6 fl (80-96); MEAN PLT VOLUME 8.8 fl (7.5-11.1); RBC 2.92 M/mm3 (3.60-5.2); RDW 14.9 % (11.6-15.6); WHITE BLOOD COUNT 6.4 K/mm3 (4.0-10.8)
[2018-08-10 11:14] LABS: ALBUMIN 2.2 g/dl (3.5-5.0); ALK PHOS 97 U/L (32-92); ANION GAP 5 MMOL/L (8-16); BILIRUBIN,TOTAL 10.7 mg/dl (0.2-1.0); BLOOD UREA NITROGEN 6 mg/dl (7-18); CHLORIDE 109 mmol/L (98-107); CO2 19 mmol/L (22-28); GLUCOSE,RANDOM 99 mg/dl (74-106); MAGNESIUM 1.5 mg/dL (1.8-2.4); PHOSPHOROUS 2.3 mg/dl (2.5-4.6); SGOT/AST 98 U/L (10-42); SGPT/ALT 35 U/L (10-40); SODIUM 133 mmol/L (136-145); TOT PROT 5.1 g/dl (6.4-8.3)
[2018-08-10 11:21] LABS: CREATININE < 0.6 mg/dl (0.6-1.3)
[2018-08-10 14:20] LABS: INR 2.22 (0.82-1.09); PROTHROMBIN TIME (PATIENT) 24.5 SEC (10.2-13.0)
[2018-08-10 16:35] LABS: PLATELET ESTIMATE DECREASED
[2018-08-10] MEDS ORDERED: LORazepam 2 MG/ML SDV VIAL IVPUSH ONE (19:57)
[2018-08-11] MEDS: LACTULOSE 20 GM/30 ML UDC (FOR ORAL USE ONLY) PO SCH ×3 (03:28→21:06)
[2018-08-11] MEDS: LORazepam 2 MG/ML SDV VIAL IVPUSH PRN ×2 (03:28→22:29)
[2018-08-11] MEDS ORDERED: SODIUM CHLORIDE 0.9% 1000 ML INFUS.BAG IV ONE (08:12)
[2018-08-11 09:16] LABS: HEMATOCRIT 31.8 % (32.4-45.2); HEMOGLOBIN 11.1 GM/dl (10.7-15.3); MEAN CELL VOLUME 111.5 fl (80-96); MEAN PLT VOLUME 9.4 fl (7.5-11.1); PLATELET COUNT 98 K/MM3 (134-434); RBC 2.85 M/mm3 (3.60-5.2); RDW 15.8 % (11.6-15.6); WHITE BLOOD COUNT 7.2 K/mm3 (4.0-10.8)
[2018-08-11 09:29] LABS: ALBUMIN 2.2 g/dl (3.5-5.0); ALK PHOS 101 U/L (32-92); ANION GAP 6 MMOL/L (8-16); BILIRUBIN,TOTAL 10.1 mg/dl (0.2-1.0); BLOOD UREA NITROGEN 5 mg/dl (7-18); CALCIUM 7.3 mg/dl (8.4-10.2); CHLORIDE 110 mmol/L (98-107); CO2 19 mmol/L (22-28); GLUCOSE,RANDOM 89 mg/dl (74-106); POTASSIUM 3.8 mmol/L (3.5-5.1); SGOT/AST 104 U/L (10-42); SGPT/ALT 34 U/L (10-40); SODIUM 135 mmol/L (136-145); TOT PROT 5.2 g/dl (6.4-8.3)
[2018-08-11 09:33] LABS: CREATININE < 0.6 mg/dl (0.6-1.3)
[2018-08-11 09:38] LABS: ADD RBC MORPHOLOGY YES
--- NOTE | 2018-08-11 10:15 | PN ---
Progress Note (short form) - Note Progress Note: Subjective: The patient was seen at the bedside. She is s/p unwitnessed fall this morning. Patient reports she slipped and fell, denies any pain. Head CT negative for ICH. Lumbar x-ray with no evidence of fracture or subluxation. Current Medications Generic Name Dose Route Start Last Admin Trade Name Freq PRN Reason Stop Dose Admin Albuterol Sulfate 2 puff 08/05/18 04:38 Ventolin Hfa Inhaler - IH Q4H PRN SHORT OF BREATH/WHEEZING Escitalopram Oxalate 20 mg 08/05/18 10:15 08/10/18 10:18 Lexapro - PO 20 mg DAILY MAXINE Administration Folic Acid 1 mg 08/05/18 10:00 08/10/18 10:18 Folic Acid - PO 1 mg DAILY MAXINE Administration Guaifenesin 10 ml 08/05/18 03:56 08/07/18 01:51 Robitussin Dm - PO 10 ml Q6H PRN Administration COUGH Potassium Chloride/Sodium Chloride 20 meq in 1,000 mls @ 100 mls/hr 08/05/18 09:45 08/09/18 10:27 Ns+20 Meq Kcl - IV 100 mls/hr ASDIR MAXINE Administration Metronidazole 500 mg in 100 mls @ 100 mls/hr 08/09/18 10:45 08/11/18 02:17 Flagyl 500mg Premixed Ivpb - IVPB 100 mls/hr Q8H-IV MAXINE Administration Levofloxacin 750 mg in 150 mls @ 100 mls/hr 08/09/18 11:00 08/10/18 10:18 Levaquin 750 Mg Premixed Ivpb - IVPB 100 mls/hr DAILY MAXINE Administration Protocol Lactated Ringer's 1,000 ml in 1,000 mls @ 150 mls/hr 08/11/18 11:15 Lactated Ringers Solution IV ASDIR MAIXNE Lactulose 20 gm 08/05/18 12:00 08/11/18 03:28 Cephulac (Oral Use) PO Not Given Q8H MAXINE Lorazepam 1 mg 08/11/18 01:47 08/11/18 03:28 Ativan Injection - IVPUSH 1 mg Q6H PRN Administration ANXIETY Magnesium Oxide 400 mg 08/08/18 10:00 08/10/18 21:00 Mag-Ox - PO 400 mg BID MAXINE Administration Multivitamins/Minerals/Vitamin C 1 tab 08/05/18 10:45 08/10/18 10:19 Tab-A-Vit - PO 1 tab DAILY MAXINE Administration Nicotine 14 mg 08/05/18 10:30 08/10/18 10:19 Nicoderm Patch - TD 14 mg DAILY MAXINE Administration Ondansetron HCl 4 mg 08/06/18 20:03 Zofran Injection IVPUSH Q4H PRN NAUSEA AND/OR VOMITING Potassium Chloride 40 meq 08/05/18 10:00 08/10/18 10:18 K-Dur - PO 40 meq DAILY MAXINE Administration Potassium Phos/Sodium Phos 1 packet 08/09/18 22:00 08/10/18 21:00 Phos-Nak Packet - PO 1 packet BID MAXINE Administration Thiamine HCl 100 mg 08/05/18 10:00 08/10/18 10:19 Vitamin B1 - PO 100 mg DAILY MAXINE Administration Objective: Vital Signs Period Temp Pulse Resp BP Sys/Bautista Pulse Ox Last 24 Hr 98 F-99.7 F 76-88 16-22 80-101/42-56 94-97 Physical Exam: General: Lethargic, arousable to speech Lungs: CTA bilaterally Heart: RRR, S1S2 Abd: Soft, non-tender, non-distended. Normoactive bowel sounds Ext: Warm, well-perfused MSK: Spine non-tender CBCD WBC 7.2 K/mm3 (4.0-10.8) 08/11/18 06:45 RBC 2.85 M/mm3 (3.60-5.2) L 08/11/18 06:45 Hgb 11.1 GM/dl (10.7-15.3) 08/11/18 06:45 Hct 31.8 % (32.4-45.2) L 08/11/18 06:45 MCV 111.5 fl (80-96) H 08/11/18 06:45 MCHC 35.0 g/dl (32.0-36.0) 08/11/18 06:45 RDW 15.8 % (11.6-15.6) H 08/11/18 06:45 Plt Count 98 K/MM3 (134-434) L 08/11/18 06:45 MPV 9.4 fl (7.5-11.1) 08/11/18 06:45 CMP Sodium 135 mmol/L (136-145) L 08/11/18 06:45 Potassium 3.8 mmol/L (3.5-5.1) 08/11/18 06:45 Chloride 110 mmol/L (98-107) H 08/11/18 06:45 Carbon Dioxide 19 mmol/L (22-28) L 08/11/18 06:45 Anion Gap 6 MMOL/L (8-16) L 08/11/18 06:45 BUN 5 mg/dl (7-18) L 08/11/18 06:45 Creatinine < 0.6 mg/dl (0.6-1.3) L 08/11/18 06:45 Creat Clearance w eGFR > 60 (>60) 08/11/18 06:45 Random Glucose 89 mg/dl (74-106) 08/11/18 06:45 Calcium 7.3 mg/dl (8.4-10.2) L 08/11/18 06:45 Total Bilirubin 10.1 mg/dl (0.2-1.0) H 08/11/18 06:45 AST 104 U/L (10-42) H 08/11/18 06:45 ALT 34 U/L (10-40) 08/11/18 06:45 Alkaline Phosphatase 101 U/L (32-92) H 08/11/18 06:45 Total Protein 5.2 g/dl (6.4-8.3) L 08/11/18 06:45 Albumin 2.2 g/dl (3.5-5.0) L 08/11/18 06:45 ultrasound of abd: Hepatomegaly with fatty infiltration, gallbladder sludge, trace of pericholecystic free fluid suspicious for acute cholecystitis Assessment: This is a 47 year old female with PMHx of asthma, anxiety, depression, alcohol abuse, who presented to the ED with alcohol intoxication. Plan: 1) Pancreatitis - As evidence on MRCP - Possible acute on chronic, elevated lipase on 08/04. Will repeat level today - IV fluids: Lactated Ringers - Discussed with Dr. Agosto, patient can be on CL diet for now, continue IV fluids. No need for transfer to [facility] at this time 2) Acute alcohol withdrawal - Completed librium taper - Ativan prn - Continue MVI, folic acid - Appreciate detox consult 3) Alcoholic hepatitis - INR remains elevated - Continue to trend - Supportive care - Avoid hepatotoxic agents - Appreciate GI consult 4) Hepatic encephalopathy - Ammonia level trending down, however patient still lethargic - Continue Lactulose (patient has not been getting it, discussed with RN importance of continuing medication) 5) Possible acute cholecystitis - Abd ultrasound with possible acute cholecystitis - Continue empiric Levaquin and Flagyl - MRCP reviewed - Appreciate surgery consult 6) Depression - Continue Lexapro 7) Asthma - No evidence of acute exacerbation at this time 8) F/E/N: - Regular diet - Hypomagnesemia: replete - Hypophosphatemia: replete 9) Prophylaxis: - Hold all chemical DVT prophylaxis 2/2 thrombocytopenia - SCDs bilateraly 10) Dispo: - Requires continued inpatient care CODE STATUS: FULL CODE Visit type - Emergency Visit Emergency Visit: Yes ED Registration Date: 08/04/18 Care time: The patient presented to the Emergency Department on the above date and was hospitalized for further evaluation of their emergent condition. - New Patient This patient is new to me today: No - Critical Care Critical Care patient: No
[2018-08-11] MEDS: NICOTINE 14 MG/24 HOURS TOPICAL PATCH TD SCH (10:35)
[2018-08-11] MEDS: THIAMINE HCL 100 MG TABLET (FP) PO SCH (10:36)
--- NOTE | 2018-08-11 11:11 | EKG ---
Test Reason : Blood Pressure : / mmHG Vent. Rate : 083 BPM Atrial Rate : 083 BPM P-R Int : 152 ms QRS Dur : 072 ms QT Int : 404 ms P-R-T Axes : 080 064 051 degrees QTc Int : 474 ms NORMAL SINUS RHYTHM NORMAL ECG WHEN COMPARED WITH ECG OF 04-AUG-2018 20:41, NONSPECIFIC T WAVE ABNORMALITY NO LONGER EVIDENT IN INFERIOR LEADS Confirmed by FLACO BRUSH, YINA ([id number]) on 08/11/2018 11:11:26 AM Referred By: MD ALFONSO Confirmed By:YINA SAM MD
[2018-08-11] MEDS ORDERED: LACTATED RINGERS SOLUTION 1,000 ML/1,000 ML INFUS.BAG IV SCH (11:15)
[2018-08-11 11:36] LABS: VENOUS PC02 38.1 mmHg (38-52); VENOUS PH 7.36 (7.32-7.42); VENOUS PO2 43.8 mmHg (28-48)
[2018-08-11 12:18] LABS: MACROCYTOSIS 2+; TARGET CELLS 1+
[2018-08-11 12:19] LABS: PLATELET ESTIMATE DECREASED
[2018-08-11] MEDS: FOLIC ACID 1 MG TABLET (FP) PO SCH (14:34)
[2018-08-11] MEDS: MAGNESIUM OXIDE 400 MG TABLET (FP) PO SCH ×2 (14:35→21:07)
[2018-08-11] MEDS: POTASSIUM CHLORIDE TABS 20 MEQ TABLET.ER (FP) PO SCH (14:35)
[2018-08-11] MEDS: ESCITALOPRAM OXALATE 20 MG TABLET (FP) PO SCH (14:35)
[2018-08-11] MEDS: NAPH,MB-DB/K PH,MBDB POWDER PACKET PO SCH ×2 (14:36→21:07)
[2018-08-11] MEDS: MULTIVITAMINS (DAILY MVI) TABLET (FP) PO SCH (14:36)
[2018-08-11] MEDS: LACTATED RINGERS SOLUTION 1,000 ML/1,000 ML INFUS.BAG IV SCH (14:37)
[2018-08-11] MEDS ORDERED: PT OWN MED DRAWER 7, Y5N ONE (22:24)
[2018-08-11] MEDS: ALBUTEROL SO4 8 GM HFA INHALER IH PRN (22:26)
[2018-08-12] MEDS ORDERED: PT OWN MED DRAWER 7, Y5N ONE ×2 (03:14→22:49)
[2018-08-12] MEDS: LACTULOSE 20 GM/30 ML UDC (FOR ORAL USE ONLY) PO SCH ×3 (03:16→21:53)
[2018-08-12] MEDS: ALBUTEROL SO4 8 GM HFA INHALER IH PRN ×2 (03:16→22:50)
[2018-08-12 08:23] LABS: INR 2.95 (0.82-1.09); PROTHROMBIN TIME (PATIENT) 32.3 SEC (10.2-13.0)
[2018-08-12 08:30] LABS: ALK PHOS 87 U/L (32-92); ANION GAP 4 MMOL/L (8-16); BLOOD UREA NITROGEN 6 mg/dl (7-18); CALCIUM 7.2 mg/dl (8.4-10.2); CHLORIDE 109 mmol/L (98-107); CO2 21 mmol/L (22-28); CREATININE 0.3 mg/dl (0.6-1.3); GLUCOSE,RANDOM 86 mg/dl (74-106); MAGNESIUM 1.3 mg/dL (1.8-2.4); PHOSPHOROUS 2.7 mg/dl (2.5-4.6); POTASSIUM 3.3 mmol/L (3.5-5.1); SGOT/AST 89 U/L (10-42); SGPT/ALT 32 U/L (10-40); SODIUM 134 mmol/L (136-145); TOT PROT 4.8 g/dl (6.4-8.3)
[2018-08-12] MEDS ORDERED: MAGNESIUM SULFATE 2 GM in SODIUM CHLORIDE 100 ML IVPB ONE (09:04)
[2018-08-12 09:24] LABS: BASO % 1.4 % (0-2.0); EOS % 1.9 % (0-4.5); HEMOGLOBIN 10.3 GM/dL (10.7-15.3); LYMPH % 27.4 % (8-40); MCH 37.2 pg (25.7-33.7); MCHC 34.3 g/dl (32.0-36.0); MEAN CELL VOLUME 108.5 fl (80-96); MEAN PLT VOLUME 9.4 fl (7.5-11.1); MONO % 20.6 % (3.8-10.2); NEUT % 48.7 % (42.8-82.8); PLATELET COUNT 113 K/MM3 (134-434); RBC 2.76 M/mm3 (3.60-5.2); RDW 15.8 % (11.6-15.6); WHITE BLOOD COUNT 6.5 K/mm3 (4.0-10.0)
[2018-08-12] MEDS ORDERED: POTASSIUM CHLORIDE TABS 20 MEQ TABLET.ER (FP) PO ONE (09:30)
[2018-08-12] MEDS ORDERED: MAGNESIUM SULFATE IN WATER 2 GM/50 ML IVPB IVPB ONE (09:30)
[2018-08-12] MEDS: MULTIVITAMINS (DAILY MVI) TABLET (FP) PO SCH (10:26)
[2018-08-12] MEDS: NICOTINE 14 MG/24 HOURS TOPICAL PATCH TD SCH (10:27)
[2018-08-12] MEDS: NAPH,MB-DB/K PH,MBDB POWDER PACKET PO SCH ×2 (10:27→21:53)
[2018-08-12] MEDS: MAGNESIUM OXIDE 400 MG TABLET (FP) PO SCH ×2 (10:27→21:53)
[2018-08-12] MEDS: ESCITALOPRAM OXALATE 20 MG TABLET (FP) PO SCH (10:28)
[2018-08-12] MEDS: THIAMINE HCL 100 MG TABLET (FP) PO SCH (10:28)
[2018-08-12] MEDS: FOLIC ACID 1 MG TABLET (FP) PO SCH (10:28)
--- NOTE | 2018-08-12 10:52 | PN ---
Progress Note (short form) - Note Progress Note: Patient resting in bed; arouseable and taking meds/PO liquids. No evidence of acute cholecystitis or CBD stone on MRI. Question of pancreatic inflammation raised on MRI but clinically doubt. Apparently had not been receiving Lactulose ; restarted yesterday - hopefully will improve patient's mental/neuro staus. Labs show continued improvement in LFTs and platelet count. VSS afebrile (has been on antibiotics) +jaudiced abdomen soft +BS less tender Impression resolving alcoholic hepatitis no evidence of acute cholecystitis - can stop antibiotics no CBD dilatation on MRI alcohol withdrawal - on meds alcoholic encephalopathy - on Lactulose Rec advance diet (limit protein) continue Lactulose continue Ativan taper discharge planning
[2018-08-12] MEDS: POTASSIUM CHLORIDE TABS 20 MEQ TABLET.ER (FP) PO SCH (11:00)
[2018-08-12 12:52] LABS: ANISOCYTOSIS 2+; MACROCYTOSIS 2+; PLATELET ESTIMATE DECREASED; TARGET CELLS 1+
--- NOTE | 2018-08-12 13:19 | PN ---
Physical Exam: SUBJECTIVE: Patient seen and examined, wants to be left alone, voices no complaints OBJECTIVE:This is a 47 year old female with PMHx of asthma, anxiety, depression , alcohol abuse, presented to the ED with alcohol intoxication. Vital Signs Period Temp Pulse Resp BP Sys/Bautista Pulse Ox Last 24 Hr 98.0 F-99 F 58-93 16-18 74-95/31-59 92-93 GENERAL: lethargic,arousable to speech, and fully oriented, agitated. HEAD: Normal with no signs of trauma. EYES: PERRL, extraocular movements intact, sclera ecteric, conjunctiva clear. No ptosis. ENT: Ears normal, nares patent, oropharynx clear without exudates, moist mucous membranes. NECK: Trachea midline, full range of motion, supple. LUNGS: Breath sounds equal, clear to auscultation bilaterally, no wheezes, no crackles, no accessory muscle use. HEART: Regular rate and rhythm, S1, S2 without murmur, rub or gallop. ABDOMEN: Soft, nontender, nondistended, normoactive bowel sounds, no guarding, no rebound, no hepatosplenomegaly, no masses. EXTREMITIES: 2+ pulses, warm, well-perfused, no edema. NEUROLOGICAL: Cranial nerves II through XII grossly intact. Normal speech, gait not observed. PSYCH: Normal mood, normal affect. SKIN: echymosis to billateral proximal upper extremities. Warm, dry, normal turgor, no rashes or lesions noted Laboratory Results - last 24 hr 08/12/18 08/12/18 08/12/18 07:45 07:45 07:45 WBC 6.5 RBC 2.76 L Hgb 10.3 L Hct 30.0 L D MCV 108.5 H MCH 37.2 H MCHC 34.3 RDW 15.8 H Plt Count 113 L D MPV 9.4 Absolute Neuts (auto) 3.2 Neutrophils % 48.7 Neutrophils % (Manual) 57.7 Band Neutrophils % 0.0 Lymphocytes % 27.4 Lymphocytes % (Manual) 17.5 Monocytes % 20.6 H Monocytes % (Manual) 21 H Eosinophils % 1.9 Eosinophils % (Manual) 2.1 Basophils % 1.4 Basophils % (Manual) 2.1 H Myelocytes % (Man) 0 Promyelocytes % (Man) 0 Blast Cells % (Manual) 0 Nucleated RBC % 0 Metamyelocytes 0 Hypochromia 0 Platelet Estimate Decreased Platelet Comment Present Polychromasia 1+ Poikilocytosis 1+ Anisocytosis 2+ Microcytosis 0 Macrocytosis 2+ Target Cells 1+ PT with INR 32.3 H INR 2.95 H Sodium 134 L Potassium 3.3 L Chloride 109 H Carbon Dioxide 21 L Anion Gap 4 L BUN 6 L Creatinine 0.3 L Creat Clearance w eGFR > 60 Random Glucose 86 Calcium 7.2 L Phosphorus 2.7 Magnesium 1.3 L Total Bilirubin 9.0 H AST 89 H ALT 32 Alkaline Phosphatase 87 D Total Protein 4.8 L Albumin 2.0 L Active Medications Generic Name Dose Route Start Last Admin Trade Name Freq PRN Reason Stop Dose Admin Albuterol Sulfate 2 puff 08/05/18 04:38 08/12/18 03:16 Ventolin Hfa Inhaler - IH 2 puff Q4H PRN Administration SHORT OF BREATH/WHEEZING Escitalopram Oxalate 20 mg 08/05/18 10:15 08/12/18 10:28 Lexapro - PO 20 mg DAILY MAXINE Administration Folic Acid 1 mg 08/05/18 10:00 08/12/18 10:28 Folic Acid - PO 1 mg DAILY MAXINE Administration Guaifenesin 10 ml 08/05/18 03:56 08/07/18 01:51 Robitussin Dm - PO 10 ml Q6H PRN Administration COUGH Metronidazole 500 mg in 100 mls @ 100 mls/hr 08/09/18 10:45 08/12/18 10:24 Flagyl 500mg Premixed Ivpb - IVPB 100 mls/hr Q8H-IV MAXINE Administration Levofloxacin 750 mg in 150 mls @ 100 mls/hr 08/09/18 11:00 08/12/18 10:24 Levaquin 750 Mg Premixed Ivpb - IVPB 100 mls/hr DAILY MAXINE Administration Protocol Lactated Ringer's 1,000 ml in 1,000 mls @ 150 mls/hr 08/11/18 11:15 08/11/18 14:37 Lactated Ringers Solution IV 150 mls/hr ASDIR MAXINE Administration Lactulose 20 gm 08/05/18 12:00 08/12/18 03:16 Cephulac (Oral Use) PO 20 gm Q8H MAXINE Administration Lorazepam 1 mg 08/11/18 01:47 08/11/18 22:29 Ativan Injection - IVPUSH 1 mg Q6H PRN Administration ANXIETY Magnesium Oxide 400 mg 08/08/18 10:00 08/12/18 10:27 Mag-Ox - PO 400 mg BID MAXINE Administration Multivitamins/Minerals/Vitamin C 1 tab 08/05/18 10:45 08/12/18 10:26 Tab-A-Vit - PO 1 tab DAILY MAXINE Administration Nicotine 14 mg 08/05/18 10:30 08/12/18 10:27 Nicoderm Patch - TD 14 mg DAILY MAXINE Administration Ondansetron HCl 4 mg 08/06/18 20:03 Zofran Injection IVPUSH Q4H PRN NAUSEA AND/OR VOMITING Potassium Chloride 40 meq 08/05/18 10:00 08/11/18 14:35 K-Dur - PO Not Given DAILY MAXINE Potassium Phos/Sodium Phos 1 packet 08/09/18 22:00 08/12/18 10:27 Phos-Nak Packet - PO 1 packet BID MAXINE Administration Thiamine HCl 100 mg 08/05/18 10:00 08/12/18 10:28 Vitamin B1 - PO 100 mg DAILY MAXINE Administration IMAGING ultrasound of abd: Hepatomegaly with fatty infiltration, gallbladder sludge, trace of pericholecystic free fluid suspicious for acute cholecystitis MRCP: FINDING SUGGESTIVE OF PANCREATITIS AND GALLBLADDER SLUDGE ASSESSMENT/PLAN: 1) Pancreatitis - As evidence on MRCP - Possible acute on chronic, lipase wnl - IV fluids: Lactated Ringers - Discussed with Dr. Agosto, will start on protein diet 2) Acute alcohol withdrawal - Completed librium taper - Ativan prn - Continue MVI, folic acid - Appreciate detox consult 3) Alcoholic hepatitis - INR remains elevated - Continue to trend - Supportive care - Avoid hepatotoxic agents - Appreciate GI consult 4) Hepatic encephalopathy - Ammonia level trending down, however patient still lethargic - Continue Lactulose (patient has not been getting it, discussed with RN importance of continuing medication) 5) Possible acute cholecystitis - Abd ultrasound with possible acute cholecystitis - Continue empiric Levaquin and Flagyl - MRCP reviewed - Appreciate surgery consult 6) Depression - Continue Lexapro 7) Asthma - No evidence of acute exacerbation at this time 8) F/E/N: - Regular diet - Hypomagnesemia: replete - Hypophosphatemia: replete 9) Prophylaxis: - Hold all chemical DVT prophylaxis 2/2 thrombocytopenia - SCDs bilateraly 10) Dispo: - Requires continued inpatient care CODE STATUS: FULL CODE
[2018-08-13] MEDS ORDERED: MELATONIN 5 MG TABLETS PO ONE (00:07)
[2018-08-13] MEDS ORDERED: PT OWN MED DRAWER 7, Y5N ONE ×2 (01:50→06:59)
[2018-08-13] MEDS: LACTULOSE 20 GM/30 ML UDC (FOR ORAL USE ONLY) PO SCH ×2 (03:08→11:07)
[2018-08-13] MEDS: ALBUTEROL SO4 8 GM HFA INHALER IH PRN (07:00)
[2018-08-13 09:40] LABS: ALBUMIN 2.1 g/dl (3.5-5.0); ALK PHOS 93 U/L (32-92); ANION GAP 3 MMOL/L (8-16); BILIRUBIN,TOTAL 9.6 mg/dl (0.2-1.0); BLOOD UREA NITROGEN 5 mg/dl (7-18); CALCIUM 7.4 mg/dl (8.4-10.2); CHLORIDE 107 mmol/L (98-107); CO2 20 mmol/L (22-28); CREATININE 0.3 mg/dl (0.6-1.3); GLUCOSE,RANDOM 118 mg/dl (74-106); MAGNESIUM 1.4 mg/dL (1.8-2.4); PHOSPHOROUS 2.5 mg/dl (2.5-4.6); POTASSIUM 3.3 mmol/L (3.5-5.1); SGOT/AST 95 U/L (10-42); SGPT/ALT 34 U/L (10-40); SODIUM 130 mmol/L (136-145); TOT PROT 5.1 g/dl (6.4-8.3)
[2018-08-13 09:41] LABS: BASO % 1.9 % (0-2.0); EOS % 1.6 % (0-4.5); HEMATOCRIT 32.8 % (32.4-45.2); MCH 37.1 pg (25.7-33.7); MCHC 33.6 g/dl (32.0-36.0); MEAN PLT VOLUME 9.1 fl (7.5-11.1); MONO % 11.5 % (3.8-10.2); PLATELET COUNT 119 K/MM3 (134-434); RBC 2.97 M/mm3 (3.60-5.2); RDW 15.8 % (11.6-15.6); WHITE BLOOD COUNT 7.4 K/mm3 (4.0-10.8)
[2018-08-13 09:46] LABS: MEAN CELL VOLUME 110.6 fl (80-96)
[2018-08-13] MEDS: POTASSIUM CHLORIDE TABS 20 MEQ TABLET.ER (FP) PO SCH (10:35)
[2018-08-13] MEDS: ESCITALOPRAM OXALATE 20 MG TABLET (FP) PO SCH (10:36)
[2018-08-13] MEDS: NAPH,MB-DB/K PH,MBDB POWDER PACKET PO SCH (10:36)
[2018-08-13] MEDS: NICOTINE 14 MG/24 HOURS TOPICAL PATCH TD SCH (10:36)
[2018-08-13] MEDS: FOLIC ACID 1 MG TABLET (FP) PO SCH (10:36)
[2018-08-13] MEDS: MULTIVITAMINS (DAILY MVI) TABLET (FP) PO SCH (10:36)
[2018-08-13] MEDS: MAGNESIUM OXIDE 400 MG TABLET (FP) PO SCH (10:36)
[2018-08-13] MEDS: LACTATED RINGERS SOLUTION 1,000 ML/1,000 ML INFUS.BAG IV SCH ×2 (10:37→10:59)
[2018-08-13] MEDS: THIAMINE HCL 100 MG TABLET (FP) PO SCH (10:37)
[2018-08-13] MEDS ORDERED: POTASSIUM CHLORIDE TABS 20 MEQ TABLET.ER (FP) PO ONE (10:45)
[2018-08-13] MEDS ORDERED: MAGNESIUM SULFATE IN WATER 2 GM/50 ML IVPB IVPB ONE (10:45)
[2018-08-13 12:21] LABS: LIPASE 122 U/L (73-393)
[2018-08-13] MEDS: NYSTATIN 100000 UNIT/GM TOPICAL OINTMENT 15 GM TUBE TP SCH ×2 (13:13→13:16)
[2018-08-13] MEDS ORDERED: NYSTATIN/TRIAMCINOLONE TOPICAL CREAM 15 GM TUBE TP SCH (13:15)
[2018-08-13] MEDS ORDERED: ZINC OXIDE/PETROLATUM,WHITE 1 APPLIC OINT...G. TP SCH (13:15)
--- NOTE | 2018-08-13 14:21 | DS ---
Physical Exam: SUBJECTIVE: Patient seen and examined, resting comfortably in bed, denies any abdominal pain tolerating diet. OBJECTIVE: Patient is a 47 y/o female with a past medical History of asthma, anxiety, depression And alcohol abuse. Patient reports drinking 2 pints a day of vodka for the past 10 years. Patient reports she self-discontinued her lexapro, "because it wasn't working." Patient is a poor historian and reports she was brought to emergency department by her family member because she was intoxicated. . ER course was notable for: (1)head ct: no acute pathology (2)ekg:nsr (3)Potassium 2.3 Vital Signs Period Temp Pulse Resp BP Sys/Bautista Pulse Ox Last 24 Hr 97.9 F-98.5 F 79-92 16-19 85-100/45-54 92-95 PHYSICAL EXAM GENERAL: lethargic,arousable to speech, and fully oriented,calm. HEAD: Normal with no signs of trauma. EYES: PERRL, extraocular movements intact, sclera ecteric, conjunctiva clear. No ptosis. ENT: Ears normal, nares patent, oropharynx clear without exudates, moist mucous membranes. NECK: Trachea midline, full range of motion, supple. LUNGS: Breath sounds equal, clear to auscultation bilaterally, no wheezes, no crackles, no accessory muscle use. HEART: Regular rate and rhythm, S1, S2 without murmur, rub or gallop. ABDOMEN: Soft, nontender, nondistended, normoactive bowel sounds, no guarding, no rebound, no hepatosplenomegaly, no masses. EXTREMITIES: 2+ pulses, warm, well-perfused, no edema. NEUROLOGICAL: Cranial nerves II through XII grossly intact. Normal speech, gait not observed. PSYCH: Normal mood, normal affect. SKIN: echymosis to billateral proximal upper extremities. Warm, dry, normal turgor, no rashes or lesions not LABS Laboratory Results - last 24 hr 08/12/18 08/13/18 08/13/18 11:08 09:03 09:03 WBC 7.4 RBC 2.97 L Hgb 11.0 Hct 32.8 MCV 110.6 H MCH 37.1 H MCHC 33.6 RDW 15.8 H Plt Count 119 L MPV 9.1 Absolute Neuts (auto) 4.5 Neutrophils % 61.0 Lymphocytes % 24.0 Monocytes % 11.5 H Eosinophils % 1.6 Basophils % 1.9 Sodium Potassium Chloride Carbon Dioxide Anion Gap BUN Creatinine Creat Clearance w eGFR Random Glucose Calcium Phosphorus Magnesium Total Bilirubin AST ALT Alkaline Phosphatase Ammonia 21.66 Total Protein Albumin Lipase 93 08/13/18 09:03 WBC RBC Hgb Hct MCV MCH MCHC RDW Plt Count MPV Absolute Neuts (auto) Neutrophils % Lymphocytes % Monocytes % Eosinophils % Basophils % Sodium 130 L Potassium 3.3 L Chloride 107 Carbon Dioxide 20 L Anion Gap 3 L BUN 5 L Creatinine 0.3 L Creat Clearance w eGFR > 60 Random Glucose 118 H D Calcium 7.4 L Phosphorus 2.5 Magnesium 1.4 L Total Bilirubin 9.6 H AST 95 H ALT 34 Alkaline Phosphatase 93 H Ammonia Total Protein 5.1 L Albumin 2.1 L Lipase 122 IMAGING ultrasound of abd: Hepatomegaly with fatty infiltration, gallbladder sludge, trace of pericholecystic free fluid suspicious for acute cholecystitis mrcp: finding suggestive of pancreatitis and gallbladder sludge HOSPITAL COURSE: 1) Pancreatitis - As evidence on MRCP, acute on chronic, lipase wnl - GI, Dr Agosto consulted and followed - patient was advanced to protein diet 2) Acute alcohol withdrawal - Completed librium taper - Ativan prn - Continue MVI, folic acid - detox physician consulted 3) Alcoholic hepatitis - liver enzymes trended downward - Supportive care - Avoid hepatotoxic agents - GI 4) Hepatic encephalopathy - Ammonia levels wnl with lactulose - continue prn 5) Possible acute cholecystitis - Abd ultrasound with possible acute cholecystitis, mrcp reviewed - treated with 5 days of Levaquin and Flagyl - surgery consulted 6) Depression - Continue Lexapro home dose - psychiatry consulted and followed 7) Asthma - No evidence of acute exacerbation at this time PLAN - physcial therapy evaluatin appreciated, patient is able to ambulate 15 feet with 2 persons, discussed with family and patient aggrees with SNF placement for Short-term rehabilitation Date of Admission:08/04/18 Date of Discharge: 08/13/18 Minutes to complete discharge: 45 Discharge Summary Reason For Visit: INTOXICATION, HYPOKALEMIA Current Active Problems Alcohol use disorder (Acute) Biliary colic (Acute) Hypokalemia (Acute) Intoxication (Acute) Condition: Improved - Instructions Diet, Activity, Other Instructions: Follow-up: Call Dr. Falcon' office at [phone] to make your postop appointment (Sunday in approximately 4 weeks after discharge). Clinic is held in the [facility] on the first floor of [facility]. Also, see your primary medical doctor within 1-2 weeks. Disposition: HOME - Home Medications Comprehensive Discharge Medication List: Ambulatory Orders Escitalopram Oxalate [Lexapro -] 20 mg PO DAILY #30 tablet 08/30/13 Albuterol Sulfate Inhaler - [Ventolin HFA Inhaler -] 2 inh PO Q4H PRN #1 inh 10/03 Montelukast Na [Singulair -] 10 mg PO HS #30 tablet 09/02/13 Salmeterol/Fluticasone [Advair 500Mcg/50Mcg -] 1 inh IH BID #1 inh 09/02/13 Albuterol 2.5/Ipratropium 0.5 [Duoneb -] 1 neb NEB Q4H PRN #1 vial 06/04/14 Albuterol Sulfate Inhaler - [Ventolin HFA Inhaler -] 1 - 2 inh PO Q4H PRN #1 inhaler 06/04/14 Buspirone HCl [Buspar -] 20 mg PO HS 06/04/14 Quetiapine Fumarate [Seroquel -] 0 mg PO HS 06/04/14 - Discharge Referral Referred to [facility] No
[2018-08-13] MEDS ORDERED: LACTOBACILLUS ACIDOPHILUS 1 TABLET PO SCH (14:30)
[2018-08-13 15:13] VITALS: BP 98/51; PULSE 93; TEMP 98.4
== END 2018-08-13 16:21 | DRG 282 ==
LOC: FER 15:03 → FM/S 22:03 → UNDOADMIN 22:15 → FM/S 22:15
PROVIDERS: ADMIT Internal Medicine; ATTEND Nurse Practitioner Family
DX: K85.90 Acute pancreatitis without necrosis or infection, unspecified (principal); D69.6 Thrombocytopenia, unspecified; E83.42 Hypomagnesemia; E83.39 Other disorders of phosphorus metabolism; K72.90 Hepatic failure, unspecified without coma; R16.0 Hepatomegaly, not elsewhere classified; K86.1 Other chronic pancreatitis; K76.0 Fatty (change of) liver, not elsewhere classified; F10.230 Alcohol dependence with withdrawal, uncomplicated; F10.220 Alcohol dependence with intoxication, uncomplicated; K70.10 Alcoholic hepatitis without ascites; E87.6 Hypokalemia; Z88.0 Allergy status to penicillin; J45.909 Unspecified asthma, uncomplicated; F41.9 Anxiety disorder, unspecified; F32.9 Major depressive disorder, single episode, unspecified
CPT/HCPCS: 36415; 70450-TC; 71045-TC-FY; 72100-TC-FY; 74181-TC; 76705-TC; 80048; 80053; 80076; 80307; 82009; 82140; 82607; 82803; 82962; 82977; 83690; 83735; 84100; 84703; 85025; 85610; 85730; 86704; 86706; 86708; 86803; 87340; 93005; 97116-GP; 97161-GP; 99283-25; J7030

== ENCOUNTER 2022-08-21 17:33 | Emergency (ER) | payer OTHER ==
[2022-08-21 17:42] VITALS: BP 129/78; PULSE 78; RESP 16; TEMP 98.2
== END 2022-08-21 18:43 | disposition home or self-care (01) ==
LOC: FER 17:33
DX: S70.311A Abrasion, right thigh, initial encounter (principal); S70.11XA Contusion of right thigh, initial encounter; Y04.8XXA Assault by other bodily force, initial encounter
CPT/HCPCS: 99281-25